=== PATIENT | male | born 1945 | race Caucasian/White ===

== ENCOUNTER 2019-07-01 08:54 | Outpatient (CLI) | payer OTHER ==
[2019-07-01] MEDS ORDERED: Iopamidol 370 76% 100 ML VIAL ONE (12:20)
--- NOTE | 2019-07-01 14:32 | NM ---
NUCLEAR MEDICINE WHOLE BODY SCAN: HISTORY: The patient was diagnosed with renal cell cancer in May 2019. COMPARISON: None. TECHNIQUE: The patient was administered 30.7 mCi of technetium 99m MDP intravenously. After 3 hour delay, static images were submitted for interpretation. FINDINGS: Physiologic distribution of the radiotracer. Uptake in the sinuses likely due to sinus disease. Uptake in both shoulders, knees, left ankle and both MTP joints due to degenerative change. Radiotracer retention in the left and right renal pelvis is noted. There is subtle uptake of radiotracer in the lumbar spine likely on the basis of the unchanged. Pleas e refer to a lumbar spine. Basilar infiltrate chest abdomen pelvis CT performed today for further detail. There is no scintigraphic evidence of osseous metastasis. IMPRESSION: No scintigraphic evidence of osseous metastasis. Transcribed Date/Time: 07/01/2019 3:18 PM
--- NOTE | 2019-07-03 14:17 | CT ---
CT CHEST WITH CONTRAST: CT ABDOMEN WITH CONTRAST: CT PELVIS WITH CONTRAST: HISTORY: Renal cancer with bone metastases. CORRELATION: Lumbar spine MRI from 06/13/2019. COMPARISON: 11/25/2016 12/21/2017 FINDINGS: CHEST Mediastinum: No mass or hematoma. Right paratracheal lymph node measures 1.4 x 1.0 cm. Previously thi s lymph node measured 0.7 x 1.0 cm. Slight interval increase. No hematoma or significant mediastinal fluid. Aorta: Normal caliber. Atherosclerosis. No periaortic fat stranding. Heart: Normal heart size. No significant pericardial fluid. Trachea and central bronchi: Patent. Pleural spaces: No pleural effusion Right lung: Emphysematous changes in the lung apex and posterior aspect of the upper lobe and lower l obe. A 0.4 x 0.3 cm nodule in the lateral aspect of the middle lobe. A 0.3 cm nodule in the superior segment of the right lower lobe. Pleural-based nodule along the posterior aspect of the righ t lower lobe measuring 0.5 x 0.5 cm. All of the aforementioned nodules are essentially unchanged when compared to the previous examination. No new nodules in the right lung. Left lung:Emphysematous changes in the lung apex and posterior aspect of the lower lobe. A 2.7 x 1.8 cm pleural-based nodule along the lingula. Pneumothorax: None. ABDOMEN Gallbladder: Unremarkable. Portal vein: Patent. Liver: Appropriate enhancement. Spleen: Not appreciated. There appears to be a splenule in the left upper quadrant measuring 3.3 x 2. 5 cm. Pancreas: Appropriate enhancement. Adrenal glands: Appropriate enhancement. Lymphadenopathy: No gastrohepatic, retrocrural or periportal lymphadenopathy. Right kidney: There is dilatation of the right renal pelvis with fat stranding secondary to a calculu s measuring 1.1 x 1.1 cm. No significant calyceal dilatation. The remainder the right extrarenal collecting system is decompressed. There are hypodensities in the right renal cortex which may repres ent cysts. There does appear to be a solid mass in the midpole of the right kidney with attenuation coefficient of 67 Hounsfield units, measuring 2.8 x 2.4 cm. Additional solid nodules in the right kid colleen are not appreciated. Left kidney: Multiple hypodensities in the left kidney are noted and may represent simple cysts. Ther e does appear to be a hypodense lesion with peripheral enhancement in the mid pole left kidney which may represent a complex cyst measuring 3.8 x 3.6 cm. Emanating from the upper pole of the left kidney is a predominantly solid attenuation mass measuring 3.4 x 3.5 cm. Mesentery: No mass, lymphadenopathy, free air or free fluid. Alimentary canal: Gastric mucosa, duodenum and multiple normal caliber small bowel loops. Ileocecal j unction is unremarkable. Normal caliber appendix. Scattered fecal material and contrast in a nondistended, nondilated colon. Occasional diverticulum. No diverticulitis. PELVIS No pelvic mass, lymphadenopathy, free air or free fluid. Urinary bladder unremarkable OSSEOUS STRUCTURES There are no lytic or blastic lesions within the osseous structures. There is no CT evidence of osseo us metastases. Multilevel vacuum disc phenomenon with endplate changes due to degenerative change. Sclerosis along the superior aspect of S1 likely due to degenerative disc disease. No evidence of pat hologic fracture. IMPRESSION: 1. Bilateral renal cortical neoplasms. 2. Stranding of the right renal pelvis likely due to an obstructing calculus. 3. Bilateral renal cortical cysts. 4. No evidence of osseous metastases. Multiple endplate changes due to degenerative disc disease are noted. 5. Lung parenchymal nodules as described above.
== END 2019-07-01 08:55 | disposition home or self-care (01) ==
LOC: NM 08:54
PROVIDERS: ATTEND Internal Medicine Hematology & Oncology
DX: C64.1 Malignant neoplasm of right kidney, except renal pelvis (principal); C79.51 Secondary malignant neoplasm of bone; N28.1 Cyst of kidney, acquired
CPT/HCPCS: 71260; 74177; 78306; 82565; A9503; Q9967

== ENCOUNTER 2019-08-08 08:28 | Day surgery (SDC) | payer OTHER ==
[2019-08-07 12:41] VITALS: BMI 31.5
[2019-08-08 08:54] LABS: PTT 29.4 SEC (22.9-36.1); Prothrombin Time 12.7 SEC (12.0-14.7)
[2019-08-08 09:00] LABS: #Basophils 0.1 thou/uL (0.0-0.2); #Eosinphils 0.3 thou/uL (0.0-0.7); #Monocytes 0.9 thou/uL (0.11-0.59); #Neutrophils 5.5 thou/uL (1.40-6.50); %Basophils 1.2 % (0.0-1.0); %Eosinophils 2.8 % (0.0-10.0); %Lymphocytes 30.4 % (21.0-51.0); %Monocytes 9.2 % (0.0-10.0); %Neutrophils 56.4 % (42.0-75.0); Hemoglobin 14.8 g/dL (14.0-18.0); Mean Corpuscular Hemoglobin 30.4 pg (27.0-31.0); Mean Corpuscular Volume 91.9 fL (78.0-98.0); Mean Platelet Volume 7.4 fL (7.4-10.4); Platelet Count 345 thou/uL (130-400); RBC Distribution Width 12.8 % (11.5-14.5); Red Blood Cell (RBC) Count 4.88 mill/uL (4.70-6.10); White Blood Cell (WBC) Count 9.8 thou/uL (4.8-10.8)
[2019-08-08 11:55] VITALS: BP 159/97; TEMP 98.5
--- NOTE | 2019-08-08 13:29 | CT ---
CT-guided biopsy right renal Mass. Conscious sedation: At least 1 hour was spent with the patient for conscious sedation. HISTORY: Right renal mass. FINDINGS: After explaining the procedure and answering all questions, limited CT imaging of the abdom en was performed. Sterile technique, buffered local anesthesia, conscious sedation, CT guidance, and a right posterior approach were used to carefully advance a 17-gauge trocar needle to the level o f the mass at the lateral cortex of the right kidney. Position was confirmed with CT. A total of 2 18-gauge core biopsy specimens were obtained and submitted to Dr. Honeycutt from pathology who confirmed specimen adequacy. Blood did come from the trocar needle after the initial biopsy. Therefore 2 small pledgets of thrombogel were carefully instilled through the trocar needle into the biopsy site for hemostasis. Needle was removed. Postprocedure imaging shows no evidence of complication. Patient tolerated the procedure well and was eventually returned to the holding area in good condition for further monitoring. IMPRESSION: Technically successful CT-guided biopsy right renal mass. Pathology is pending.
--- NOTE | 2019-08-08 13:33 | CT ---
CT-guided biopsy left renal mass FINDINGS: After explaining the procedure and answering all questions, CT biopsy right renal mass was performed and reported separately. With patient in left lateral decubitus position, limited imaging was performed. Sterile technique, bu ffered local anesthesia, CT guidance, conscious sedation, and a left posterior approach were used to carefully advance a 17-gauge trocar needle to the exophytic hyperdense mass at the superior pole o f the left kidney. Position was confirmed with CT. A total of 2 18-gauge core biopsy specimens were obtained and submitted to Dr. Honeycutt from pathology who confirmed specimen adequacy. Needle was removed. No evidence of complication. Patient tolerated the procedure well and was returned to the holding area in good condition for further monit oring. IMPRESSION: Technically successful CT-guided biopsy left renal mass. Pathology is pending.
== END 2019-08-08 13:05 | disposition home or self-care (01) ==
LOC: CT 08:28
PROVIDERS: ATTEND Urology
PROC: 0TB03ZX Excision of Right Kidney, Percutaneous Approach, Diagnostic (ICD-10-PCS; principal; 2019-08-08)
PROC: 0TB13ZX Excision of Left Kidney, Percutaneous Approach, Diagnostic (ICD-10-PCS; principal; 2019-08-08)
DX: D41.01 Neoplasm of uncertain behavior of right kidney (principal); D41.02 Neoplasm of uncertain behavior of left kidney
CPT/HCPCS: 50200; 77002; 85025; 85610; 85730; 88184; 88305; 88333

== ENCOUNTER 2019-08-13 13:36 | Outpatient (CLI) | payer OTHER ==
--- NOTE | 2019-08-13 14:36 | PET ---
PET CT: HISTORY: Malignant neoplasm of right kidney, extrarenal pelvis, renal cancer with bone mets, and lung parenchy mal nodules. TECHNIQUE: PET scanning with CT attenuation correction was performed from the base of the brain through the prox imal thighs following the intravenous administration of 11 mCi F18-FDG in the right antecubital fossa . COMPARISON: None. CORRELATION: CT chest, abdomen, and pelvis, and whole body bone scan of 07/01/19. FINDINGS: There is a mildly hypermetabolic right paratracheal lymph node in the mediastinum with a SUV of 2.9. No hypermetabolic cervical, hilar, axillary, abdominal, or pelvic lymph nodes are seen. No hypermetab olic pulmonary nodules or adrenal nodules are identified. There is a focal area of increased FDG localization in the left liver lobe with a SUV of 5.3. Multiple hypermetabolic osseous lesions are present with varying SUVs: including C2 (7.2), left scapu la (5.3), T11 (3.2), L3 (4.2), S1 (7.2), right iliac bone (5.3), left iliac bone (5), right pubic bon e (4.8), left ischial tuberosity (4.8), right proximal femur (3.5), and left proximal femur (10.3). The CT scan used for attenuation correction demonstrates no evidence of pleural effusions or ascites. There are calculi in the right renal pelvis and the right UPJ. The UPJ calculus is obstructing. Bila teral renal masses are again seen. IMPRESSION: 1. Findings are consistent with osseous metastatic disease. 2. Findings in the left liver lobe and right paratracheal lymph node are also suspicious for metasta tic disease. POS: VERONICA
== END 2019-08-13 13:37 | disposition home or self-care (01) ==
LOC: PET 13:36
PROVIDERS: ATTEND Internal Medicine Hematology & Oncology
DX: C79.51 Secondary malignant neoplasm of bone (principal); C64.1 Malignant neoplasm of right kidney, except renal pelvis; R91.8 Other nonspecific abnormal finding of lung field
CPT/HCPCS: 78815; A9552

== ENCOUNTER 2019-09-02 09:04 | Day surgery (SDC) | payer OTHER ==
[2019-08-30 13:04] VITALS: BMI 30.8
[~2019-09-02 09:04] MED LIST: FLU VACC TS2019-20(65YR UP)/PF 180 MCG/0.5 ML SYRINGE IM ONE
[2019-09-02] MEDS ORDERED: Midazolam HCl 2 mg/2 ml Vial ONE (10:39)
--- NOTE | 2019-09-02 11:48 | CT ---
CT GUIDED RIGHT ILIAC BONE MARROW ASPIRATION AND BIOPSY: CLINICAL HISTORY: Follicular lymphoma. PROCEDURE: The procedure including the risks and complications were explained to the patient, and informed conse nt was obtained. The patient was placed on the CT scan table in the prone position. Noncontrasted CT images were obtained through the pelvis. An area was marked overlying the RIGHT estefanía c bone, and the area was meticulously prepped and draped in usual sterile fashion. The skin and subcutaneous tissues were infiltrated with buffered 1% lidocaine for local anesthesia. After a small skin incision was made, an 11-gauge needle was advanced and positioning was confirmed w ith axial CT images. Approximately 9 milliliters of bone marrow aspirate was obtained. The needle was then further advanced, and a bone biopsy was performed. The needle was removed, and hemostasis wa s achieved with direct pressure. The patient tolerated the procedure well and without immediate complication. The patient was transported to radiology nurses holding area for further monitoring quintin or to discharge. IMPRESSION: Technically successful percutaneous bone marrow aspiration and biopsy. Pathology results are pending.
== END 2019-09-02 13:20 | disposition home or self-care (01) ==
LOC: CT 09:04
PROVIDERS: ATTEND Internal Medicine Hematology & Oncology
PROC: BR2D1ZZ Computerized Tomography (CT Scan) of Sacroiliac Joints using Low Osmolar Contrast (ICD-10-PCS; principal; 2019-09-02)
PROC: 079T3ZX Drainage of Bone Marrow, Percutaneous Approach, Diagnostic (ICD-10-PCS; principal; 2019-09-02)
PROC: 07DR3ZX Extraction of Iliac Bone Marrow, Percutaneous Approach, Diagnostic (ICD-10-PCS; principal; 2019-09-02)
DX: C82.93 Follicular lymphoma, unspecified, intra-abdominal lymph nodes (principal); Z79.82 Long term (current) use of aspirin; Z79.899 Other long term (current) drug therapy
CPT/HCPCS: 20225; 77002; 85097; 88184; 88237; 88305; 88311; 88313; 88341; 88342; J2250

== ENCOUNTER 2020-01-07 11:30 | Emergency (ER) | payer OTHER ==
[2020-01-07 12:16] LABS: #Basophils 0.1 thou/uL (0.0-0.2); #Eosinphils 0.3 thou/uL (0.0-0.7); #Lymphocytes 2.3 thou/uL (1.20-3.40); #Monocytes 0.8 thou/uL (0.11-0.59); #Neutrophils 4.1 thou/uL (1.40-6.50); %Basophils 1.3 % (0.0-1.0); %Eosinophils 3.5 % (0.0-10.0); %Lymphocytes 30.3 % (21.0-51.0); %Neutrophils 53.9 % (42.0-75.0); Hemoglobin 14.8 g/dL (14.0-18.0); Mean Corpuscular HGB CONC 31.8 g/dL (32.0-36.0); Mean Corpuscular Hemoglobin 29.8 pg (27.0-31.0); Mean Corpuscular Volume 93.5 fL (78.0-98.0); Mean Platelet Volume 7.7 fL (7.4-10.4); Platelet Count 340 thou/uL (130-400); RBC Distribution Width 12.7 % (11.5-14.5); Red Blood Cell (RBC) Count 4.97 mill/uL (4.70-6.10); White Blood Cell (WBC) Count 7.7 thou/uL (4.8-10.8)
--- NOTE | 2020-01-07 12:24 | RAD ---
Exam: Chest one view HISTORY:Increased shortness of breath. Lower extremity swelling. Renal neoplasm. Comparison: None FINDINGS: Cardiac silhouette: Normal Aorta: Atherosclerosis Pulmonary vessels: Normal Costophrenic angles: Clear LUNGS: No masses or consolidation. Scattered calcified granuloma Pneumothorax: None Osseous abnormalities: None IMPRESSION: 1. Atherosclerosis 2. No acute cardiac pulmonary process
[2020-01-07 12:38] LABS: ALT (SGPT) 10 U/L (8-55); AST (SGOT) 17 U/L (5-34); Albumin 4.2 g/dL (3.4-4.8); Alkaline Phosphatase 158 U/L (40-110); Anion Gap 13 mmol/L (10-20); BUN (Urea Nitrogen) 26 mg/dL (8.4-25.7); Bilirubin, Total 0.6 mg/dL (0.2-1.2); CK (CPK) 68 U/L (30-200); Calc. Creatinine Clearance 0 mL/min (70-130); Calcium 9.8 mg/dL (7.8-10.44); Carbon Dioxide 27 mmol/L (23-31); Chloride 103 mmol/L (98-107); Estimated GFR-MDRD 30; Globulin 3.5 g/dL (2.4-3.5); Glucose 96 mg/dL (83-110); Potassium 3.8 mmol/L (3.5-5.1); Protein, Total 7.7 g/dL (5.8-8.1); Sodium 139 mmol/L (136-145)
--- NOTE | 2020-01-16 16:40 | EKG ---
Test Reason : SOB Blood Pressure : / mmHG Vent. Rate : 059 BPM Atrial Rate : 059 BPM P-R Int : 162 ms QRS Dur : 082 ms QT Int : 436 ms P-R-T Axes : 028 -03 029 degrees QTc Int : 431 ms Sinus bradycardia Otherwise normal ECG Confirmed by DENISE REN DO ([id number]), editor news TIFFANI RUTH ([id number]) on 01/16/2020 4:39:48 PM Referred By: GELA Confirmed By:DENISE REN DO
== END 2020-01-07 13:45 | disposition home or self-care (01) ==
LOC: ERS 11:30
DX: I12.9 Hypertensive chronic kidney disease with stage 1 through stage 4 chronic kidney disease, or unspecified chronic kidney disease (principal); N18.9 Chronic kidney disease, unspecified; E78.5 Hyperlipidemia, unspecified; E78.00 Pure hypercholesterolemia, unspecified; I10 Essential (primary) hypertension; F41.9 Anxiety disorder, unspecified; F32.9 Major depressive disorder, single episode, unspecified; Z79.899 Other long term (current) drug therapy; Z86.718 Personal history of other venous thrombosis and embolism
CPT/HCPCS: 71045; 80053; 82550; 83880; 84484; 85025; 93005; 94760

== ENCOUNTER 2020-02-04 07:52 | Outpatient (CLI) | payer OTHER ==
--- NOTE | 2020-02-04 13:10 | PET ---
Radionucleotide PET scan with CT attenuation correction HISTORY: Lymphoma. Renal cell cancer. Bone metastases. Restaging. Comparison: 08/13/2019. FINDINGS: Physiologic uptake of radiotracer throughout the enteric system and along each urinary trac t. Uptake associated with the 1.5 cm precarinal mediastinal lymph node shows max SUV 4.9 (previously 2.9 ). Hypermetabolic focus within the left liver lobe now shows max SUV 5.5 (previously 5.3). Widespread areas of hypermetabolic activity associated with osseous metastases are again demonstrated : Right humerus max SUV 3.4 (previously 3.3) Left scapula max SUV 5.2 (5.5) Right scapula 1.6 (3.3) Manubrium 3.1 (2.8) L3 superior endplate 5.8 (4.3) Right iliac bone 7.6 (5.2) Left iliac bone 4.9 (3.4) Upper sacrum 4.6 (7.2) Left femur 13.8 (10.3) Right femur 4.9 (6.0) Nondiagnostic CT attenuation correction images again show prominent atherosclerosis. Prominent right hydronephrosis is again demonstrated with obstructing proximal right ureteral calcifications and additional nonobstructing renal calculus. IMPRESSION : Remarkably stable exam. Very little change in uptake associated with widespread osseous metastatic di sease, mediastinal lymph node, and liver lesion. No new abnormalities.
== END 2020-02-04 07:53 | disposition home or self-care (01) ==
LOC: PET 07:52
PROVIDERS: ATTEND Internal Medicine Hematology & Oncology
DX: C85.90 Non-Hodgkin lymphoma, unspecified, unspecified site (principal); C64.9 Malignant neoplasm of unspecified kidney, except renal pelvis; C79.51 Secondary malignant neoplasm of bone; K76.9 Liver disease, unspecified
CPT/HCPCS: 78815; A9552

== ENCOUNTER 2020-02-14 06:39 | Outpatient (CLI) | payer OTHER ==
[2020-02-14 11:06] LABS: Hemoglobin 15.7 g/dL (14.0-18.0); Mean Corpuscular HGB CONC 33.5 g/dL (32.0-36.0); Mean Corpuscular Hemoglobin 30.8 pg (27.0-31.0); Mean Corpuscular Volume 92.1 fL (78.0-98.0); Mean Platelet Volume 7.9 fL (7.4-10.4); Platelet Count 365 thou/uL (130-400); RBC Distribution Width 12.8 % (11.5-14.5); Red Blood Cell (RBC) Count 5.08 mill/uL (4.70-6.10); White Blood Cell (WBC) Count 9.7 thou/uL (4.8-10.8)
[2020-02-14 12:02] LABS: Anion Gap 17 mmol/L (10-20); BUN (Urea Nitrogen) 21 mg/dL (8.4-25.7); Calc. Creatinine Clearance 0 mL/min (70-130); Calcium 9.5 mg/dL (7.8-10.44); Carbon Dioxide 23 mmol/L (23-31); Chloride 104 mmol/L (98-107); Estimated GFR-MDRD 32; Glucose 105 mg/dL (83-110); Sodium 140 mmol/L (136-145)
[2020-02-15 12:17] LABS: SARS-CoV-2 MS2 Positive; SARS-CoV-2 N Gene Negative; SARS-CoV-2 S Gene Negative; SARS-CoV-2 orf1ab Negative
[2020-02-20 11:56] LABS: SARS-CoV-2 MS2 Positive; SARS-CoV-2 N Gene Negative; SARS-CoV-2 S Gene Negative; SARS-CoV-2 orf1ab Negative
== END 2020-02-14 06:40 | disposition home or self-care (01) ==
LOC: LABBT 06:39
PROVIDERS: ATTEND Urology
DX: Z01.812 Encounter for preprocedural laboratory examination (principal); Z11.59 Encounter for screening for other viral diseases; N20.0 Calculus of kidney
CPT/HCPCS: 80048; 85027; 87635; U0003

== ENCOUNTER 2020-02-23 13:50 | Inpatient (IN) | payer OTHER ==
[~2020-02-23 13:50] MED LIST changes: +Dexamethasone 20 MG/5 ML VIAL ONE; -FLU VACC TS2019-20(65YR UP)/PF 180 MCG/0.5 ML SYRINGE IM ONE; +Lidocaine 1% PF 5 ML VIAL ONE; +Ondansetron PF 4 MG/2 ML Vial ONE; +PROPOFOL 200 MG/20 ML VIAL ONE; +Rocuronium Bromide 10 MG/ML (10ML VIAL) ONE; +Succinylcholine Chloride 20 MG/ML 10 ml SYRINGE FS ONE
[2020-02-23] MEDS ORDERED: Fentanyl 100 MCG/2 ML VIAL ONE ×4 (14:04→19:40)
[2020-02-23] MEDS ORDERED: Adacel (T-DAP) 0.5 ML SYRINGE ONE (14:27)
[2020-02-23] MEDS ORDERED: Ondansetron PF 4 MG/2 ML Vial ONE (14:27)
--- NOTE | 2020-02-23 14:43 | RAD ---
EXAM: 2 views of the right hip HISTORY: Right hip pain COMPARISON: None FINDINGS: 2 views of the right hip shows an intertrochanteric fracture of the right femur. No disloca tion is seen. No degenerative changes are seen. No soft tissue swelling is present. IMPRESSION: Intertrochanteric right femur fracture
--- NOTE | 2020-02-23 14:45 | RAD ---
EXAM: 4 views of the right knee HISTORY: Knee pain COMPARISON: None FINDINGS: No knee effusion is seen. There is no evidence of acute fracture or dislocation. No signifi cant degenerative changes are seen. No soft tissue swelling is present. Vascular calcifications are seen. IMPRESSION: No evidence of acute osseous abnormality.
--- NOTE | 2020-02-23 14:46 | RAD ---
EXAM: 2 views of the right femur HISTORY: Leg pain after fall COMPARISON: None FINDINGS: There is an intertrochanteric right femur fracture. No other fractures are seen. No disloca tion is present. No soft tissue swelling is seen. No degenerative changes are seen in the hip. IMPRESSION: Intertrochanteric right femur fracture
--- NOTE | 2020-02-23 15:09 | CT ---
EXAM: CT brain without contrast HISTORY: Fall with head trauma COMPARISON: None TECHNIQUE: Multiple contiguous axial images were obtained and a CT of the brain without contrast. FINDINGS: There are scattered hypodensities in the subcortical and periventricular white matter consi stent with small vessel ischemic disease. There is no evidence of hydrocephalus, intracranial hemorrhage, or extra-axial fluid collection. The calvarium and overlying soft tissues are unremarkable. The visualized paranasal sinuses and masto id air cells are well aerated. IMPRESSION: No evidence of acute intracranial abnormality
--- NOTE | 2020-02-23 15:20 | RAD ---
EXAM: Single view of the chest HISTORY: Preoperative radiograph COMPARISON: 01/07/2020 FINDINGS: Single view of the chest shows a normal sized cardiomediastinal silhouette. A calcified gr anuloma seen in the right midlung. There is no evidence of consolidation or pleural effusion. The bones are unremarkable. IMPRESSION: No evidence of acute cardiopulmonary disease
[2020-02-23 15:48] LABS: #Eosinphils 0.1 thou/uL (0.0-0.7); #Lymphocytes 2.7 thou/uL (1.20-3.40); #Monocytes 1.3 thou/uL (0.11-0.59); #Neutrophils 10.8 thou/uL (1.40-6.50); %Basophils 0.1 % (0.0-1.0); %Eosinophils 0.4 % (0.0-10.0); %Monocytes 8.5 % (0.0-10.0); %Neutrophils 72.9 % (42.0-75.0); Hemoglobin 13.1 g/dL (14.0-18.0); Mean Corpuscular HGB CONC 33.8 g/dL (32.0-36.0); Mean Corpuscular Hemoglobin 30.9 pg (27.0-31.0); Mean Corpuscular Volume 91.4 fL (78.0-98.0); Mean Platelet Volume 7.9 fL (7.4-10.4); Platelet Count 324 thou/uL (130-400); RBC Distribution Width 12.9 % (11.5-14.5); Red Blood Cell (RBC) Count 4.26 mill/uL (4.70-6.10); White Blood Cell (WBC) Count 14.8 thou/uL (4.8-10.8)
[2020-02-23 15:49] LABS: PTT 29.3 sec (22.9-36.1); Prothrombin Time 12.9 sec (12.0-14.7)
[2020-02-23 16:04] LABS: ALT (SGPT) 9 U/L (8-55); AST (SGOT) 14 U/L (5-34); Albumin 3.7 g/dL (3.4-4.8); Alkaline Phosphatase 154 U/L (40-110); Anion Gap 15 mmol/L (10-20); BUN (Urea Nitrogen) 22 mg/dL (8.4-25.7); Bilirubin, Total 0.3 mg/dL (0.2-1.2); Calc. Creatinine Clearance 0 mL/min (70-130); Calcium 8.8 mg/dL (7.8-10.44); Carbon Dioxide 21 mmol/L (23-31); Chloride 107 mmol/L (98-107); Estimated GFR-MDRD 28; Glucose 101 mg/dL (83-110); Potassium 3.5 mmol/L (3.5-5.1); Protein, Total 6.7 g/dL (5.8-8.1); Sodium 139 mmol/L (136-145)
--- NOTE | 2020-02-23 17:10 | HP ---
REQUESTING PHYSICIAN: Dr. Guerin. ATTENDING SURGEON: Dr. Cartagena. CONSULTATIONS: Orthopedics, Dr. Perdomo. HISTORY OF PRESENT ILLNESS: The patient is a 74-year-old man who was leaning over to pick something up when he fell forward and hit his head. He reports no loss of consciousness. He was able to contact family members fairly quickly, who notified EMS. He was brought to the emergency department with a chief complaint of right knee and hip pain. He underwent evaluation and examination, was noted to have a right intertrochanteric femur fracture; at which time, we were asked to evaluate the patient for admission and obtain Orthopedic consultation. The patient was examined in the emergency department by Dr. Perdomo and due to his n.p.o. status, plans on taking him to the operating room today. The patient has been n.p.o. since this morning. He denies blood thinner use, though he does take a baby aspirin daily. ALLERGIES: NONE. CURRENT MEDICATIONS: The patient reports takin. Antidepressant, he believes, is Zoloft. 2. "A blood pressure medicine.". 3. A baby aspirin every day. PAST MEDICAL HISTORY: Lymphoma, renal cell carcinoma with bony metastasis, obstructing nephrolithiasis on the right, and hypertension. PAST SURGICAL HISTORY: On 02/21/2020, the patient underwent right uroscopy with a laser of ureteral stone and retrograde urography. Family reports splenectomy and hand surgery. SOCIAL HISTORY: The patient denies drug, tobacco, or alcohol use. He lives independently at home alone with family nearby. The patient's urologist is Dr. Kendall and his oncologist is Dr. Garcia. REVIEW OF SYSTEMS: 10-point review of systems is negative as otherwise stated. PHYSICAL EXAMINATION: VITAL SIGNS: Blood pressure 135/88, heart rate 88, respirations 16, oxygen saturation is 95% on 2 L via nasal cannula, and temperature is 98.4. GENERAL: The patient is resting in bed. He appears to be having some discomfort and the nurses about to administer some more pain medications. Otherwise, he is awake and responsive and interactive appropriately. The son is at bedside and answers the majority of the questions. He does state that his dad is at baseline. HEENT: Head is normocephalic with small forehead contusion noted. Eyes, extraocular motions intact. PERRLA bilaterally. Ears are atraumatic without discharge. Nose, atraumatic without discharge. Oropharynx is clear. NECK: Nontender. Trachea is midline. No JVD. CHEST: Clear to auscultation with good inspiratory and expiratory effort. HEART: Regular rate and rhythm. ABDOMEN: Soft, flat, nontender with active bowel sounds. PELVIS: Stable with tenderness to palpation to the right hip consistent with his fracture. EXTREMITIES: Neurovascularly intact x4. Distal extremity shows 2+ pitting edema bilaterally. BACK: By report is atraumatic and nontender. LABORATORY FINDINGS: White blood cell count 14.8, hemoglobin 13.1, hematocrit 38.9, and platelets 324. Sodium 139, potassium 3.5, chloride 107, CO2 of 21, BUN 22, creatinine 2.32, glucose 101, INR 1.0, PTT 29. RADIOGRAPHIC REPORTS: CT of the brain without contrast shows no evidence of acute intracranial abnormality. AP chest x-ray shows no evidence of acute cardiopulmonary disease. Views of the right hip show a right intertrochanteric femur fracture. Views of the right femur again demonstrate the right intertrochanteric femur fracture. Views of the right knee show no evidence of acute osseous abnormality. ASSESSMENT: 1. Status post ground level fall. 2. Right intertrochanteric femur fracture. 3. Acute pain secondary to above. 4. History of chronic kidney disease secondary to obstructing renal stone. 5. History of lymphoma with bony metastasis. 6. History of hypertension and depression. PLAN: Plan will be to continue the patient n.p.o. status. He will be taken to the preop staging area from the emergency department postoperatively. We will do pain control, pulmonary toilet, gastritis, mechanical VTE prophylaxis. Tomorrow, we will begin physical and occupational therapy. We will discuss placement, and we will also advise Dr. Kendall that the patient is here and ascertain whether he would like the patient to undergo his nephrostomy tube placement during this hospitalization. The evaluation, examination, laboratory, and radiographic findings were discussed with Dr. Cartagena after this dictation. Job ID: [id number]
[2020-02-23] MEDS ORDERED: Morphine Sulfate 2 MG/ML SYRINGE SLOW IVP PRN (18:13)
[2020-02-23] MEDS ORDERED: Promethazine HCl 25 MG/ML VIAL IM PRN (18:13)
[2020-02-23] MEDS ORDERED: PACU-Morphine 4MG/ML VIAL SLOW IVP PRN (18:13)
[2020-02-23] MEDS ORDERED: Ondansetron HCl/PF 4 MG/2 ML Vial IVP PRN (18:13)
[2020-02-23] MEDS ORDERED: Promethazine HCl 25 MG/ML VIAL SLOW IVP PRN (18:13)
[2020-02-23] MEDS ORDERED: SUGAMMADEX SODIUM 200 MG/2 ML VIAL ONE (18:42)
[2020-02-23] MEDS ORDERED: Dextrose 5% in Water 1,000 ML IV PRN (19:01)
[2020-02-23] MEDS ORDERED: Ondansetron PF 4 MG/2 ML Vial IVP PRN (19:01)
[2020-02-23] MEDS ORDERED: Dextrose 50% Abboject 50 ML SYRINGE SLOW IVP PRN (19:01)
[2020-02-23] MEDS ORDERED: Ondansetron ODT 4 MG TAB PO PRN (19:01)
[2020-02-23] MEDS ORDERED: hydrALAZINE 20 MG/ML VIAL SLOW IVP PRN (19:01)
[2020-02-23] MEDS ORDERED: Morphine 2 MG/ML SYRINGE SLOW IVP PRN (19:01)
[2020-02-23] MEDS ORDERED: Morphine 4 MG/ML VIAL SLOW IVP PRN (19:01)
[2020-02-23] MEDS: Sodium Chloride 0.9% 1,000 ML IV SCH (20:00)
[2020-02-23 22:58] VITALS: BMI 30.4
[2020-02-24] MEDS: Sodium Chloride 0.9% 1,000 ML IV SCH (00:55)
[2020-02-24] MEDS: CEFAZOLIN 2 GM in Premix Bag 1 BAG IVPB SCH ×2 (00:56→08:50)
[2020-02-24 05:16] LABS: #Lymphocytes 1.1 thou/uL (1.20-3.40); #Monocytes 0.5 thou/uL (0.11-0.59); #Neutrophils 8.1 thou/uL (1.40-6.50); %Basophils 0.2 % (0.0-1.0); %Eosinophils 0.1 % (0.0-10.0); %Lymphocytes 11.4 % (21.0-51.0); %Neutrophils 83.3 % (42.0-75.0); Hemoglobin 11.4 g/dL (14.0-18.0); Mean Corpuscular HGB CONC 32.6 g/dL (32.0-36.0); Mean Corpuscular Hemoglobin 29.8 pg (27.0-31.0); Mean Corpuscular Volume 91.2 fL (78.0-98.0); Mean Platelet Volume 7.7 fL (7.4-10.4); Platelet Count 278 thou/uL (130-400); RBC Distribution Width 12.9 % (11.5-14.5); Red Blood Cell (RBC) Count 3.83 mill/uL (4.70-6.10); White Blood Cell (WBC) Count 9.7 thou/uL (4.8-10.8)
[2020-02-24 05:36] LABS: Anion Gap 12 mmol/L (10-20); BUN (Urea Nitrogen) 20 mg/dL (8.4-25.7); Calc. Creatinine Clearance 42 mL/min (70-130); Calcium 8.1 mg/dL (7.8-10.44); Carbon Dioxide 23 mmol/L (23-31); Chloride 109 mmol/L (98-107); Estimated GFR-MDRD 31; Glucose 137 mg/dL (83-110); Magnesium 2.1 mg/dL (1.6-2.6); Potassium 3.8 mmol/L (3.5-5.1); Sodium 140 mmol/L (136-145)
--- NOTE | 2020-02-24 06:43 | CON ---
DATE OF CONSULTATION: 02/23/2020 CHIEF COMPLAINT: Right hip pain, right knee pain. HISTORY OF PRESENT ILLNESS: Mr. Navarrete is a 74-year-old male who presents after a ground-level fall. The patient recently underwent a right ureteroscopy with laser of ureteral stone. The patient underwent this procedure on 02/21/[address] Kendall. The patient has stage IV follicular lymphoma, that is followed by Dr. Garcia. The patient was at home, was walking, tripped and fell and injured his right hip. The patient complains of pain with mobilization, and was brought in by EMS. The patient is currently being evaluated by Trauma. He is resting in bed. His pain was at 10/10 upon arrival. PAST MEDICAL HISTORY: Includes: 1. Hypertension. 2. Hyperlipidemia. 3. Anxiety. 4. Depression. 5. Stroke. 6. Reflux. 7. Hemorrhoids. 8. Hearing loss. 9. Peripheral vascular disease. 10. Stage IV follicular lymphoma. 11. Renal stones with obstruction. PAST SURGICAL HISTORY: 1. Splenectomy. 2. Hand surgery, unspecified. 3. Right ureteroscopy with laser procedures and repeat laser procedure performed on the . ALLERGIES: NO KNOWN DRUG ALLERGIES. MEDICATION LIST: 1. Amlodipine. 2. Atorvastatin. 3. Aspirin. 4. Cyclobenzaprine. 5. Omeprazole. 6. Oxybutynin. 7. Paroxetine. 8. Tamsulosin. 9. Tramadol. SOCIAL HISTORY: The patient has a history of smoking, had alcohol use 20 years ago, which he has quit. 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 The patient's son is at bedside. REVIEW OF SYSTEMS: Notes some general fatigue and pain. The patient had no cough. No productive sputum. The patient denies chest pain or shortness of breath. He denies hematemesis or melena. The patient does have some hematuria and recent sorto, laceration, and skin changes. No migraines. Denies visual or auditory hallucinations. The patient has no history excessive bleeding. PHYSICAL EXAMINATION: VITAL SIGNS: Blood pressure 141/67, heart rate 85, respirations 20, temperature 98.5, and saturation 95% on 2 L oxygen. GENERAL: Alert male, in no acute distress, resting in bed. EXTREMITIES: Right lower extremity has shortened, externally rotated right leg. He has brisk cap refill. Some edema to his right lower extremity. No abrasions on his right leg. He has stable knee, pain with internal rotation. He is able to plantar flexion, dorsiflex his right foot. LABORATORY VALUES: INR of 1. Hemoglobin and hematocrit of 13 and 38 and platelet count of 324. The patient has a pending creatinine. The patient has femur, knee, and hip films, showing a right intertrochanteric hip fracture. No obvious lesions. Review of PET scan show multiple mets of the lymphoma, there was no obvious bony destruction. IMPRESSION: 1. Right intertrochanteric hip fracture. 2. Stage IV follicular lymphoma. 3. Hypertension. 4. Recent kidney stone with possible obstruction. 5. Anxiety. 6. Stroke. 7. Reflux. ASSESSMENT AND PLAN: The patient will be admitted to Trauma Surgery. The patient will be taken to the OR for a long TFNA. I discussed the patient's care with Dr. Weiss who feels that this not likely a pathologic fracture. I can treat this as a typical intertrochanteric femur fracture. Given the lesions, I would just stabilize the bone with a long nail. I discussed the risks and benefits of the surgery to include pain, scar, bleeding, infection, damage to vital structures, decreased range of motion and strength, fracture above or below the implants, nonunion, malunion, need for further surgeries, loss of life or limb. I discussed risk of blood clots. I discussed the mortality associated with this fracture to be about 40%. I discussed with the patient this will take about 3 months to recover and he will lose a level of ambulatory function. I discussed all this with the family. They understand and agree. They elect to proceed with a right long TFNA nail. Job ID: [id number] [facility]
--- NOTE | 2020-02-24 07:50 | PRG ---
DATE OF SERVICE: 02/24/2020 SUBJECTIVE: Mr. Navarrete is a 74-year-old male, status post right intertrochanteric hip fracture. The patient is currently resting in bed comfortably, thirsty, desires to drink. OBJECTIVE: VITAL SIGNS: Temperature 98.5, pulse 80, respiratory rate 18, blood pressure 130/80. GENERAL: Alert and oriented, in no acute distress. EXTREMITIES: Right lower extremity neurovascularly intact. Dressing is clean, dry, and intact. LABORATORY DATA: Creatinine of 2.11. The patient is stable. IMPRESSION: Right intertrochanteric hip fracture. ASSESSMENT AND PLAN: The patient will have trauma consult, Dr. Kendall given his recent issues with his stones. Weightbearing as tolerated. Follow inhouse and likely need long term placement. Job ID: [id number]
[2020-02-24] MEDS ORDERED: Prevnar 13-Val Conj/PF 0.5 ML SYRINGE IM ONE (09:00)
--- NOTE | 2020-02-24 09:56 | RAD ---
TWO VIEWS RIGHT FEMUR: DATE: 02/23/2020. PROVIDED CLINICAL HISTORY: ORIF. FINDINGS: Comparison is made with the examination performed earlier same date. Spot fluorosocpic frontal and l ateral views of the right femur demonstrate antegrade intramedullary femoral nail placement with prox imal and distal interlocking screws transfixing previously right proximal femoral fracture. IMPRESSION: As above. POS: AMOS
[2020-02-24] MEDS ORDERED: Sodium Bicarbonate 2.5 MEQ/5 ML VIAL ONE (12:00)
[2020-02-24] MEDS ORDERED: Midazolam HCl 2 mg/2 ml Vial ONE (12:00)
[2020-02-24] MEDS ORDERED: Fentanyl 100 MCG/2 ML VIAL ONE (12:01)
[2020-02-24] MEDS ORDERED: traMADol HCl 50 MG TAB PO PRN ×2 (12:10)
[2020-02-24] MEDS ORDERED: Cyclobenzaprine 10 MG TAB PO PRN (12:10)
--- NOTE | 2020-02-24 13:00 | OP ---
DATE OF PROCEDURE: 02/23/2020 PREOPERATIVE DIAGNOSIS: Right intertrochanteric hip fracture. POSTOPERATIVE DIAGNOSIS: Right intertrochanteric hip fracture. PROCEDURE PERFORMED: Intramedullary nailing of right intertrochanteric hip fracture. LAW ENFORCEMENT OFFICER: None. ANESTHESIOLOGIST: Paco Jay MD ANESTHESIA: The patient received general endotracheal intubation. ESTIMATED BLOOD LOSS: 150 mL. TOURNIQUET TIME: None. ANTIBIOTICS: Ancef 2 g. IMPLANTS: Synthes 11 x 420 mm right TFNA nail with a 105 mm fenestrated screw and a 5 x 44 mm distal locking screw. COMPLICATIONS: None. HISTORY PRESENT ILLNESS: Mr. Navarrete is a 74-year-old male, status post ground level fall. The patient has a history of stage IV lymphoma. Most recently underwent stenting by Dr. Kendall. The patient on Monday had a ground-level fall, sustaining right hip injury. I called and discussed the patient's care with Dr. Weiss. He is currently under Dr. Garcia's care. The patient has right hip pain with obvious deformity consistent with right intertrochanteric hip fracture. I discussed the risks and benefits of surgery, pain, scar, bleeding, infection, damage to vital structures, decreased range of motion and strength, failure of implant, fracture above or below the stem, loss of life or limb. I discussed I would do a long nail just because he has some lymphoma lesions, although they are not lytic. I just wanted to protect the femur. They understood the risks and benefits of the procedure and elected to proceed. DESCRIPTION OF PROCEDURE: Time-out was performed designating the patient's right lower extremity as the operative site based on site, consents, and marking. After time-out, the patient's right lower extremity was prepped and draped in sterile fashion. He had been placed on fracture table. Bony prominences were well- padded. He had a Verma placed, which will stay in until Dr. Kendall decides what he wants to do in the morning. The patient's right incision was made down through skin. IT band split, came down onto the greater trochanter, placed a guide pin under fluoroscopic guidance. I positioned it a little bit more anteriorly and medialized using my pin adjustment guide. Being happy with the position, we used our opening reamer, passed a guidewire, measured a 420 nail, reamed up to 12, passed the 11 x 420 mm nail down the shaft. I liked the center-center position and the position within the neck. Upon completion of passing the nail, we then looked under fluoroscopic guidance, placed our center pin. After two passes in the center- center position of the head, being happy with the position, we over-reamed for 110 and placed the 105 mm screw, compressed it in place. I then took down the gate, took off one half turn. I liked the overall reduction on AP and lateral radiographs and distally placed the screw in the dynamization hole, and there were perfect circles down through skin, drilled and filled the screw. I liked the overall alignment, position, took final radiographs, washed, closed with 0, 2-0 and skin with maggy. The patient will be weightbear as tolerated. Receive perioperative antibiotics, will be admitted to Trauma Service. Job ID: [id number] MTDD
[2020-02-24] MEDS: Acetaminophen 500 MG TAB PO SCH ×2 (17:48→23:51)
[2020-02-25] MEDS: Acetaminophen 325 MG TAB PO SCH ×2 (06:28→12:23)
--- NOTE | 2020-02-25 07:32 | PRG ---
DATE OF SERVICE: 02/25/2020 SUBJECTIVE: Mr. Navarrete is a pleasant 74-year-old male status post fall, right intratrochanteric fracture, resting comfortably in bed, walked about 3 steps yesterday. OBJECTIVE: VITAL SIGNS: Temperature 97.8, pulse 66, respiratory rate 18, blood pressure 120/68. EXTREMITIES: Right lower extremity neurovascularly intact. clean, dry and intact. LABORATORY DATA: H and H pending. IMPRESSION: Right intertrochanteric fracture. ASSESSMENT AND PLAN: The patient will need to begin range of motion. We will need to increase activity as tolerated, likely need placement. Discharge needs DVT prophylaxis. Followed in-house. Job ID: [id number]
[2020-02-25] MEDS ORDERED: traMADol HCl 50 MG TAB PO PRN ×2 (09:00)
[2020-02-25] MEDS ORDERED: Senokot S 8.6-50 MG TAB PO SCH (12:15)
--- NOTE | 2020-02-25 14:17 | CT ---
CT guided percutaneous right nephrostomy: 02/24/2020 HISTORY: 74-year-old male with right obstructive uropathy due to calculus at right UPJ TECHNIQUE: Signed informed consent obtained. Patient placed prone on CT gurney. Skin of right posterior flank pr epared and draped in usual sterile fashion. Entire procedure performed under step CT guidance. 25-gauge needle used to apply buffered lidocaine superficially and into the intercostal muscles at th e right T11-12 rib interspace. 20-gauge AccuStick needle advanced through posterior renal parenchyma, and into the dilated collecting system. 0.018 inch guidewire advanced through the AccuSti ck needle and into the renal pelvis. AccuStick needle exchanged over the guidewire for a 5 Finnish dilator sheath. Dilator and 0.018 inch guidewire exchanged for a 0.035 inch stiff Amplatz short guide wire. 5 Finnish sheath exchanged over the Amplatz guidewire for an 8 Finnish dilator. The 8 Finnish dilator was exchanged over the guidewire for a 8 Finnish nephrostomy catheter with stylette. Stylette and guidewire were removed. Pigtail loop formed and locked into place. Nephrostomy tube connected to external drainage bag, and sutured into place. Patient tolerated procedure well. No complications. FINDINGS: Initial scan through the abdomen demonstrate severe right hydronephrosis, and calculus at right UPJ. Contralateral large multiple left posterior exophytic renal cystic masses. Step fluoroscopy CT images demonstrated in parenchymal advancement of AccuStick needle from a posterior approach into the renal collecting system, followed by 0.018 inch guidewire, 5 Finnish dilator, 0.035 inch guidewire, and finally the percutaneous nephrostomy tube. The scan through the abdomen post deployment demonstra te pigtail loop in the dilated right extrarenal pelvis. IMPRESSION: Successful percutaneous right nephrostomy. 8 Finnish nephrostomy catheter left to external drainage. Transcribed Date/Time: 02/25/2020 2:16 PM
[2020-02-25] MEDS ORDERED: Acetaminophen/Codeine 30-300mg Tablet PO PRN (14:52)
[2020-02-25] MEDS: Oxybutynin 5 MG TAB PO SCH ×2 (15:47→21:17)
[2020-02-25] MEDS: Acetaminophen/Codeine 30-300mg Tablet PO PRN ×2 (15:48→22:36)
--- NOTE | 2020-02-25 16:25 | PRG ---
DATE OF SERVICE: 02/25/2020 SUBJECTIVE: The patient was evaluated today during morning rounds. He was sitting upright in bed, in no acute distress at this time with no complaints. He reports that his pain is well controlled, though is exacerbated with movement. The patient did have a nephrostomy tube placed yesterday and has been draining overnight. He is tolerating a diet well. The patient is agreeable to going to inpatient rehab and the patient has signed a choice letter for [facility] today for referral. We will continue to follow. OBJECTIVE: VITAL SIGNS: Temperature 98.0, pulse 69, respiratory rate 20, 94% on 2 L nasal cannula, and blood pressure 109/67. GENERAL: Elderly male, in no acute distress, lying upright in bed. HEENT: Normocephalic and atraumatic. Trachea midline. RESPIRATORY: Equal rise and fall. The patient in no acute respiratory distress. CARDIAC: Regular rate and rhythm. ABDOMEN: Soft, nontender. Active bowel sounds. MUSCULOSKELETAL: Nephrostomy tube in place and draining at this time. EXTREMITIES: Right lower extremity, bandaging clean, dry, and intact. Extremity neurovascularly intact at this time. ASSESSMENT: 1. Status post ground level fall. 2. Right intertrochanteric femur fracture, postop day #2 intramedullary nail. 3. History of chronic kidney disease secondary to obstructing renal stone, postop day #1 status post right nephrostomy tube. 4. History of lymphoma with bony metastasis. 5. History of hypertension and depression. PLAN: The patient reports good pain control at this time. We will continue current regimen. We will discuss with IR today about VTE prophylaxis for the patient as he recently had a nephrostomy tube placed and want to ensure the proper DVT prophylaxis status post his procedure. The patient has signed a letter for [facility] and is agreeable to going to rehab at this time. Pending acceptance for [facility]. We will continue to follow. The patient was evaluated by and the case was discussed with Dr. Garber during morning rounds and he is agreeable with the plan of care. Job ID: [id number] [facility]
--- NOTE | 2020-02-25 16:31 | PRG ---
DATE OF SERVICE: 02/24/2020 SUBJECTIVE: The patient was evaluated during morning rounds. He was sitting upright in bed, in no acute distress. The patient was encouraged to eat on morning rounds as he had not yet begun eating. He did complain of somewhat of a sore throat, though this is expected after his procedure yesterday. Discussed plans on having Dr. Kendall come by and see the patient in the morning and the patient was agreeable with the plan of care. OBJECTIVE: VITAL SIGNS: Temperature 98.4, pulse 87, respiratory rate 16, 95% on room air, blood pressure 119/71. GENERAL: The patient is an elderly man, sitting upright in bed, in no acute distress. HEENT: Normocephalic and atraumatic. RESPIRATORY: Equal rise and fall. The patient is in no acute respiratory distress. CARDIAC: Regular rate and rhythm. ABDOMEN: Soft, nontender, nondistended, positive bowel sounds. EXTREMITIES: Dressing over the right hip clean, dry, and intact. Right lower extremity neurovascularly intact. LABORATORY DATA: White count 9.7, hemoglobin 11.4, hematocrit 34.9, platelet count 278. Sodium 140, potassium 3.8, chloride 109, carbon dioxide 23, BUN 20, creatinine 2.11, phosphorus 3.0, magnesium 2.1. DIAGNOSTIC IMAGING: Abdomen and pelvis CT: Initial scan through the abdomen demonstrates severe right hydronephrosis, calculus at the right UPJ. Contralateral large multiple left posterior exophytic renal cystic masses. Step fluoroscopy CT images demonstrated parenchymal advancement of AccuStick needle from a posterior approach into the renal collecting system, followed by 0.018-inch guidewire, 5-Welsh dilator, a 0.035-inch guidewire, followed by the percutaneous nephrostomy tube. The scan through the abdomen post deployment demonstrates pigtail loop in the dilated right extrarenal pelvis. Impression; successful percutaneous right nephrostomy. Eight-Welsh nephrostomy catheter left to external drainage. ASSESSMENT: 1. Status post ground level fall. 2. Right intertrochanteric femur fracture, postop day one status post intramedullary nailing of right intertrochanteric hip fracture. 3. Acute pain secondary to above. 4. History of chronic kidney disease secondary to obstructing renal stone. 5. History of lymphoma with bony metastasis. 6. History of hypertension and depression. 7. Status post percutaneous right nephrostomy catheter placement by Dr. Kendall. PLAN: The patient is postop day one status post right medullary nail placement and postop day zero status post right nephrostomy tube placement. The patient tolerated both procedures well. He was able to tolerate a diet after his surgery yesterday. He reports that his pain is well controlled. His right lower extremity is neurovascularly intact and the bandaging is clean, dry, and intact at this time. Plan will be continued supportive therapy with pain medication, physical therapy , and occupational therapy at this time. The patient will continue to be offered a diet at this time as he is status post both procedures. Case management to work on possible placement for the patient at this time, as it is determined that the patient has fair rehab potential and PT is recommended, rehab versus retirement unit at this time. We will continue to follow the patient, continue to monitor urinary output status post his nephrostomy tube, and continue supportive care. The case was discussed with Dr. Garber during morning rounds and he is agreeable with the plan of care. Job ID: [id number] [facility]
[2020-02-25] MEDS: Sulfameth/Trimethoprim DS 800-160mg TAB PO SCH (21:17)
[2020-02-25] MEDS: Enoxaparin Sodium 30 MG/0.3 ML SYRINGE SC SCH (21:17)
[2020-02-25] MEDS: Senokot S 8.6-50 MG TAB PO SCH (21:17)
[2020-02-26] MEDS: PARoxetine 20 MG TAB PO SCH (09:07)
[2020-02-26] MEDS: Senokot S 8.6-50 MG TAB PO SCH ×2 (09:07→20:57)
[2020-02-26] MEDS: Tamsulosin HCl 0.4 MG CAP PO SCH (09:08)
[2020-02-26] MEDS: Amlodipine 10 MG TAB PO SCH (09:08)
[2020-02-26] MEDS: Sulfameth/Trimethoprim DS 800-160mg TAB PO SCH ×2 (09:08→20:57)
[2020-02-26] MEDS: Oxybutynin 5 MG TAB PO SCH ×3 (09:08→20:57)
[2020-02-26] MEDS ORDERED: Acetaminophen/Codeine 30-300mg Tablet PO SCH (10:30)
[2020-02-26] MEDS: Acetaminophen/Codeine 30-300mg Tablet PO SCH ×2 (14:09→21:00)
--- NOTE | 2020-02-26 14:20 | PRG ---
DATE OF SERVICE: 02/26/2020 SUBJECTIVE: The patient was evaluated today during morning rounds. He was sitting upright in bed, in no acute distress. He did endorse some pain yesterday afternoon and was unable to perform his afternoon physical therapy due to pain at that time. It was discussed with the patient that we would advance and schedule some of his pain medications at this time to help with his pain. The patient is agreeable to plan of care. We will discuss discontinuing the Verma catheter today. The patient is still pending rehab placement. The patient is agreeable with plan of care with no other complaints. OBJECTIVE: VITAL SIGNS: Temperature 98.1, pulse 77, respiratory rate 14, oxygen saturation 94% on room air, blood pressure 131/75. GENERAL: Elderly male, sitting upright in bed, in no acute distress. HEENT: Normocephalic and atraumatic. Trachea midline. RESPIRATORY: Equal rise and fall. The patient has no respiratory distress. CARDIAC: Regular rate and rhythm. ABDOMEN: Soft, nontender, and nondistended. Nephrostomy tube in place in back and continues to drain fluid. EXTREMITIES: Bandaging clean, dry, and intact. Extremities are neurovascularly intact at this time. ASSESSMENT: 1. Status post ground level fall. 2. Right intertrochanteric femur fracture, postoperative day #3 status post intramedullary nail. 3. History of chronic kidney disease secondary to obstructing renal stone, postoperative day #2 status post right nephrostomy tube. 4. History of lymphoma with bony metastasis. 5. History of hypertension and depression. PLAN: The patient continues to do well. He tolerates p.o., and continues to work with Physical Therapy at this time. We will schedule his Tylenol No. 3 at this time as he was only getting it p.r.n. We will also discontinue his Verma catheter today and ensure that the patient can void before discharge. He has not had a bowel movement yet while being here, and so stool softener will be continued today as well. Case Management continues to work on rehab placement for him, and we will continue to follow along pending placement. The patient had been on oxygen overnight; however, in the room, we were able to wean him to room air, and he was still saturating anywhere between 90% to 94%, so the oxygen was left off at this time. We will continue to monitor and follow. The patient was evaluated by and the case was discussed with Dr. Garber during morning rounds, and he is agreeable with the plan of care. Job ID: [id number] [facility]
[2020-02-26] MEDS: Enoxaparin Sodium 30 MG/0.3 ML SYRINGE SC SCH (20:57)
--- NOTE | 2020-02-27 02:13 | PRG ---
DATE OF SERVICE: 02/27/2020 SUBJECTIVE: The patient is currently on the surgical floor, he is status post ground level fall which he sustained a right intertrochanteric femur fracture in which he has undergone surgical repair. The patient also had a nephrostomy tube placed in his right kidney for a pre-existing condition unrelated to this fall. The patient tolerated both this procedures well. He began working with physical and occupational therapy and he is awaiting placement to rehab. He is tolerating a diet, and his pain is controlled. OBJECTIVE: VITAL SIGNS: Stable. The patient is afebrile. GENERAL: The patient is resting comfortably in bed. He is awake, alert, conversant. He demonstrated that he was able to get above 1500 on his incentive spirometry. LUNGS: Clear to auscultation bilaterally. HEART: Regular rate and rhythm. ABDOMEN: Soft, nontender with active bowel sounds. EXTREMITIES: Neurovascularly intact x4. Postop dressing is clean, dry, and intact. GENITOURINARY: His urostomy tube appears to be functioning properly. ASSESSMENT: 1. Status post ground level fall. 2. Status post open reduction and internal fixation of right proximal femur fracture. 3. Status post nephrostomy tube placement. 4. History of chronic kidney disease. 5. History of hypertension, depression, lymphoma with bony metastasis. PLAN: Plan will be to continue supportive care. Encourage physical and occupational therapy and await placement decision. Job ID: [id number]
[2020-02-27] MEDS: Acetaminophen/Codeine 30-300mg Tablet PO SCH ×3 (05:19→21:17)
[2020-02-27] MEDS: Amlodipine 10 MG TAB PO SCH (08:28)
[2020-02-27] MEDS: Senokot S 8.6-50 MG TAB PO SCH ×2 (08:28→21:17)
[2020-02-27] MEDS: PARoxetine 20 MG TAB PO SCH (08:28)
[2020-02-27] MEDS: Sulfameth/Trimethoprim DS 800-160mg TAB PO SCH ×2 (08:28→21:17)
[2020-02-27] MEDS: Tamsulosin HCl 0.4 MG CAP PO SCH (08:28)
[2020-02-27] MEDS: Oxybutynin 5 MG TAB PO SCH ×3 (08:29→21:17)
[2020-02-27] MEDS: Acetaminophen/Codeine 30-300mg Tablet PO PRN (09:19)
--- NOTE | 2020-02-27 15:45 | PRG ---
DATE OF SERVICE: 02/27/2020 SUBJECTIVE: The patient was evaluated today during morning rounds. He was sitting upright in his bed in no acute distress. He reports that his pain is well tolerated at this time and he continues to work with Physical and Occupational therapy. He is currently pending rehab placement and this was discussed. He is postop day 4 status post an intramedullary nail placement in the right hip for intertrochanteric hip fracture and postop day 3 from a right nephrostomy tube. OBJECTIVE: VITAL SIGNS: Temperature 98.1 Fahrenheit, pulse 70, respiratory rate 16, oxygen saturation 96% on room air, blood pressure 143/84. GENERAL: Elderly male, sitting upright in bed, in no acute distress. HEENT: Normocephalic and atraumatic. Trachea midline. LUNGS: Equal rise and fall. Nonlabored. The patient is in no acute respiratory distress. HEART: Regular rate and rhythm. ABDOMEN: Soft, nontender, nondistended, active bowel sounds. EXTREMITIES: Postop dressing is clean, dry, and intact. The patient is neurovascularly intact x4. MUSCULOSKELETAL: Nephrostomy tube in place and draining appropriately. LABORATORY DATA: No new laboratory data to report. IMAGING: No new imaging to report. ASSESSMENT: 1. Status post ground level fall. 2. Status post open reduction and internal fixation of right proximal femur fracture. 3. Status post nephrostomy tube placement. 4. History of chronic kidney disease. 5. History of hypertension, depression, lymphoma with bony metastases. PLAN: We will continue supportive care at this time. The patient continues to work with Physical and Occupational therapy and tolerates his diet well. Nephrostomy tube is in place and continues to work appropriately at this time. We have weaned the patient's oxygen and will continue to encourage incentive spirometry. His Verma catheter has been discontinued. The patient is currently awaiting placement for [facility] and will follow up with this. The patient was evaluated by and the case was discussed with Dr. Garber during morning rounds and he is agreeable with the plan of care. Job ID: [id number] [facility]
[2020-02-27] MEDS: Enoxaparin Sodium 30 MG/0.3 ML SYRINGE SC SCH (21:17)
--- NOTE | 2020-02-28 02:25 | PRG ---
DATE OF SERVICE: 02/28/2020 SUBJECTIVE: The patient is currently on the surgical floor. He is status post ground level fall, in which he sustained a right proximal femur fracture. He has undergone open reduction and internal fixation of same. He also underwent a nephrostomy tube placement due to preexisting condition that was previously planned prior to this fall. He is currently awaiting placement. He is tolerating a diet. His pain is controlled, and he has been working with Physical and Occupational Therapy. OBJECTIVE: VITAL SIGNS: Stable. The patient is afebrile. GENERAL: The patient is resting comfortably in bed. He is awake, alert, conversant, appropriate. HEENT: Unremarkable. LUNGS: Clear to auscultation bilaterally. HEART: Regular rate and rhythm. ABDOMEN: Soft, nontender with active bowel sounds. EXTREMITIES: Neurovascularly intact x4. Postop dressing is clean, dry, intact. ASSESSMENT: 1. Status post ground level fall. 2. Status post open reduction and internal fixation of right proximal femur fracture. 3. Status post nephrostomy tube placement. 4. History of chronic kidney disease, hypertension, depression, lymphoma with bony metastasis. PLAN: To continue supportive care. Encourage physical and occupational therapy and await final placement decision. Job ID: [id number]
[2020-02-28] MEDS: Acetaminophen/Codeine 30-300mg Tablet PO SCH (05:42)
[2020-02-28] MEDS ORDERED: Polyethylene Glycol 3350 17 GM Packet PO SCH (09:00)
[2020-02-28] MEDS: Acetaminophen/Codeine 30-300mg Tablet PO PRN (09:33)
[2020-02-28] MEDS: PARoxetine 20 MG TAB PO SCH (09:34)
[2020-02-28] MEDS: Senokot S 8.6-50 MG TAB PO SCH (09:34)
[2020-02-28] MEDS: Amlodipine 10 MG TAB PO SCH (09:34)
[2020-02-28] MEDS: Tamsulosin HCl 0.4 MG CAP PO SCH (09:34)
[2020-02-28] MEDS: Oxybutynin 5 MG TAB PO SCH (09:34)
[2020-02-28] MEDS: Sulfameth/Trimethoprim DS 800-160mg TAB PO SCH (09:34)
[2020-02-28 11:00] VITALS: BP 126/68; TEMP 98
--- NOTE | 2020-03-01 11:21 | EKG ---
Test Reason : Blood Pressure : / mmHG Vent. Rate : 091 BPM Atrial Rate : 091 BPM P-R Int : 160 ms QRS Dur : 084 ms QT Int : 414 ms P-R-T Axes : 042 030 088 degrees QTc Int : 509 ms Sinus rhythm with Premature atrial complexes Abnormal ECG Noew slight ST depression V3-V5 compared to 01/07/2020 Confirmed by CRISS HARKINS DO ([id number]), international editorial producer RENNY STEVENS ([id number]) on 03/01/2020 11:20:58 AM Referred By: Confirmed By:CRISS HARKINS DO
== END 2020-02-28 13:05 | DRG 481 ==
LOC: ERS 13:50 → SDC/OP 17:21 → SURG B 19:02
PROVIDERS: ADMIT Specialist; ATTEND Specialist
PROC: 0QH634Z Insertion of Internal Fixation Device into Right Upper Femur, Percutaneous Approach (ICD-10-PCS; principal; 2020-02-23)
PROC: 3E0234Z Introduction of Serum, Toxoid and Vaccine into Muscle, Percutaneous Approach (ICD-10-PCS; 2020-02-23)
PROC: 0T9330Z Drainage of Right Kidney Pelvis with Drainage Device, Percutaneous Approach (ICD-10-PCS; 2020-02-25)
PROC: BT11ZZZ Fluoroscopy of Right Kidney (ICD-10-PCS; 2020-02-25)
DX: S72.141A Displaced intertrochanteric fracture of right femur, initial encounter for closed fracture (principal); C82.90 Follicular lymphoma, unspecified, unspecified site; C79.51 Secondary malignant neoplasm of bone; N13.2 Hydronephrosis with renal and ureteral calculous obstruction; E78.5 Hyperlipidemia, unspecified; E78.00 Pure hypercholesterolemia, unspecified; F41.9 Anxiety disorder, unspecified; F32.9 Major depressive disorder, single episode, unspecified; Z60.2 Problems related to living alone; K21.9 Gastro-esophageal reflux disease without esophagitis; H91.90 Unspecified hearing loss, unspecified ear; N18.9 Chronic kidney disease, unspecified; I12.9 Hypertensive chronic kidney disease with stage 1 through stage 4 chronic kidney disease, or unspecified chronic kidney disease; W01.0XXA Fall on same level from slipping, tripping and stumbling without subsequent striking against object, initial encounter; Z86.73 Personal history of transient ischemic attack (TIA), and cerebral infarction without residual deficits; Y92.009 Unspecified place in unspecified non-institutional (private) residence as the place of occurrence of the external cause; Z79.82 Long term (current) use of aspirin; Z79.899 Other long term (current) drug therapy; Z23 Encounter for immunization; Z87.442 Personal history of urinary calculi
CPT/HCPCS: 36415; 70450; 71045; 74176; 76000; 77002; 80048; 80053; 83735; 84100; 84484; 85025; 85610; 85730; 86850; 86900; 86901; 90471; 90715; 93005; 96361; 96374; 96375; 96376; C1713; C1729; G0390; J0690; J1100; J1650; J2001; J2250; J2270; J2405; J2704; J3010

== ENCOUNTER 2020-04-07 19:13 | Observation (INO) | payer MEDICARE, OTHER ==
[2020-04-07] MEDS ORDERED: Morphine 4 MG/ML VIAL ONE ×2 (19:37→21:50)
[2020-04-07 19:57] LABS: #Lymphocytes 1.6 thou/uL (1.20-3.40); #Monocytes 0.9 thou/uL (0.11-0.59); #Neutrophils 11.5 thou/uL (1.40-6.50); %Basophils 0.1 % (0.0-1.0); %Eosinophils 0.2 % (0.0-10.0); %Lymphocytes 11.5 % (21.0-51.0); %Monocytes 6.1 % (0.0-10.0); Mean Corpuscular HGB CONC 32.8 g/dL (32.0-36.0); Mean Corpuscular Hemoglobin 30.8 pg (27.0-31.0); Mean Corpuscular Volume 94.1 fL (78.0-98.0); Mean Platelet Volume 7.5 fL (7.4-10.4); Platelet Count 329 thou/uL (130-400); RBC Distribution Width 12.9 % (11.5-14.5); Red Blood Cell (RBC) Count 4.22 mill/uL (4.70-6.10); White Blood Cell (WBC) Count 14.1 thou/uL (4.8-10.8)
[2020-04-07 20:19] LABS: ALT (SGPT) 8 U/L (8-55); AST (SGOT) 14 U/L (5-34); Albumin 3.5 g/dL (3.4-4.8); Alkaline Phosphatase 240 U/L (40-110); Anion Gap 13 mmol/L (10-20); BUN (Urea Nitrogen) 18 mg/dL (8.4-25.7); Bilirubin, Total 0.5 mg/dL (0.2-1.2); Calc. Creatinine Clearance 0 mL/min (70-130); Calcium 8.7 mg/dL (7.8-10.44); Carbon Dioxide 25 mmol/L (23-31); Chloride 105 mmol/L (98-107); Estimated GFR-MDRD 40; Globulin 3.1 g/dL (2.4-3.5); Glucose 134 mg/dL (83-110); Potassium 3.4 mmol/L (3.5-5.1); Protein, Total 6.6 g/dL (5.8-8.1); Sodium 140 mmol/L (136-145)
[2020-04-07 20:28] LABS: Bilirubin Negative (Negative); Blood, Urine Negative (Negative); Clarity Clear (Clear); Glucose, Urine (Dipstick) Normal (Negative); Ketone, Urine 20 mg/dL (Negative); Leukocyte Negative Leu/uL (Negative); Nitrite Negative (Negative); Protein, Urine (Dipstick) 20 mg/dL (Neg-Trace); Specific Gravity, Urine 1.019 (1.002-1.036); pH, Urine 6.5 (5.0-9.0)
--- NOTE | 2020-04-07 20:35 | CT ---
CT STONE PROTOCOL: 04/07/20 HISTORY: 74-year-old male with dislodgement of nephrostomy tube. COMPARISON: Comparison is made with the contrast enhanced CT of 07/01/19 and the images from right sided nephrost inder tube placement of 02/24/20. FINDINGS: Absence of IV and oral contrast reduces the sensitivity of the exam, particularly for evaluation of s olid organs and bowel. Chronic changes in the lung bases are again seen. Calcified gallstones are present. The 3.5 and 3 cm mass-like densities in the left upper quadrant are stable and likely splenules. The patient is post s plenectomy. There has been interval dislodgement of the right nephrostomy tube with tip in the posterior abdomina l wall. Bilateral renal cysts are again seen. There is a right sided hydronephrosis due to a 4 mm obs tructing UPJ calculus. The calculi in the dependent portions of the dilated right renal pelvis are ag ain seen. No left sided hydroureteronephrosis is seen. No free air or free fluid is noted in the abdo men or pelvis. The small bowel loops are not abnormally dilated. There are vascular calcifications without evidence of aneurysmal dilatation of the abdominal aorta. There are degenerative changes in the spine. There a re postop changes and metallic hardware in the right proximal femur. There is fecal material in the c olon and rectum. IMPRESSION: Interval dislodgement of the right nephrostomy tube since 02/24/20. Please see above. POS: OFF
[2020-04-07] MEDS ORDERED: cefTRIAXone\\ROCEPHIN 1 GM VIAL ONE (21:50)
[2020-04-08 00:43] VITALS: BMI 28.3
[2020-04-08] MEDS: Sodium Chloride 0.9% 1,000 ML IV SCH ×3 (01:10→17:55)
[2020-04-08] MEDS: Morphine 2 MG/ML VIAL SLOW IVP PRN ×2 (02:39→14:57)
--- NOTE | 2020-04-08 05:21 | HP ---
REASON FOR ADMISSION: Back pain. HISTORY OF PRESENT ILLNESS: This is a 74-year-old male patient, who approximately a month and a half ago had a nephrostomy tube placed by Dr. Kendall. Yesterday, he bent forward to scrap picker something and then started having pain on the right side, where the nephrostomy tube is. He does report decreased urine output as well, the pain has been severe, worse with change in position. He decided to present to the ER today. CAT scan of the abdomen and pelvis does show dislodgement of his nephrostomy tube. The patient is currently in the ER, appears to be comfortable. Denies fevers. Denies chills. He is scheduled to undergo a percutaneous lithotripsy on the of this month. Reviewing his records, the patient was admitted to our hospital in February of 2020 after a fall and was noted to have right intertrochanteric femoral fracture. He did undergo open reduction and internal fixation and has been undergoing physical therapy. He does report that he is still not able to ambulate appropriately. PAST MEDICAL HISTORY: 1. Lymphoma. 2. 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 3. Obstructive nephrolithiasis on the right. 4. High blood pressure. 5. Depression. PAST SURGICAL HISTORY: Right ureteroscopy with laser and . PHYSICAL EXAMINATION: GENERAL: Awake, alert, and oriented, does not appear in distress. VITAL SIGNS: His blood pressure is 127/71, heart rate 71, and temperature is 98.4. HEENT: Head is nontraumatic and normocephalic. Pupils equal and reactive. Extraocular movements are intact. Nonicteric sclerae. Well injected conjunctivae. Oral mucosa normal. Nasal mucosa normal. NECK: Supple. No adenopathy. No murmur. Thyroid is not palpable. Trachea is midline. No supraclavicular lymphadenopathy. CARDIAC: S1 and S2. Regular. No murmur. No gallops. No friction rubs. No displacement of PMI. LUNGS: Clear to auscultation bilaterally. No wheezes. No rhonchi. No crackles. ABDOMEN: Bowel sounds are positive. Nontender abdomen. No hepatosplenomegaly. EXTREMITIES: No lower extremity edema. No cyanosis. NEURO: Cranial nerves 2 through 12 within normal limits. Normal motor function. Normal sensory function. Normal reflexes. LABORATORY DATA: Blood work shows a WBC of 14.1, hemoglobin of 13, platelets of 329, and neutrophil count of 82%. Sodium 140, potassium 3.4, bicarb 25, BUN 18, and creatinine 1.7 and baseline around 2. CT of the abdomen and pelvis shows interval dislodgement of the right nephrostomy tube since February 24, 2020. ASSESSMENT AND PLAN: This is a 74-year-old male patient, who is somewhat of a poor historian. He does have a nephrostomy tube placed a couple weeks ago and appears to have dislodgement of that tube. ER physician did contact Urology and they will see him in consultation and give recommendation, whether they want to replace the tube themselves or want IR to do it tonight. I will admit him and we will provide him with pain control, also gentle fluid hydration. We will recheck his labs in the morning. For deep venous thrombosis prophylaxis, he will be on sequential compression devices. For his chronic kidney disease, we will continue to monitor his kidney function and he will be on IV fluid hydration. I did discuss with him his code status and he wishes to be a full code. I am awaiting his med rec to be done, so I can reconcile his current medications. Job ID: [id number]
[2020-04-08] MEDS ORDERED: hydrALAZINE 20 MG/ML VIAL SLOW IVP PRN (05:44)
[2020-04-08 06:14] LABS: Hemoglobin 14.2 g/dL (14.0-18.0); Mean Corpuscular HGB CONC 31.4 g/dL (32.0-36.0); Mean Corpuscular Hemoglobin 29.5 pg (27.0-31.0); Mean Corpuscular Volume 94.1 fL (78.0-98.0); Mean Platelet Volume 8.2 fL (7.4-10.4); Platelet Count 367 thou/uL (130-400); RBC Distribution Width 12.9 % (11.5-14.5); Red Blood Cell (RBC) Count 4.81 mill/uL (4.70-6.10); White Blood Cell (WBC) Count 15.9 thou/uL (4.8-10.8)
[2020-04-08 06:29] LABS: Anion Gap 17 mmol/L (10-20); BUN (Urea Nitrogen) 18 mg/dL (8.4-25.7); Calc. Creatinine Clearance 50 mL/min (70-130); Calcium 9.4 mg/dL (7.8-10.44); Carbon Dioxide 22 mmol/L (23-31); Chloride 105 mmol/L (98-107); Estimated GFR-MDRD 41; Glucose 149 mg/dL (83-110); Potassium 3.4 mmol/L (3.5-5.1); Sodium 141 mmol/L (136-145)
[2020-04-08 08:03] LABS: Band 1 % (5-11); Eosinophils 1 % (0-10); Lymphocytes 16 % (21-51); MDiff Complete? YES; Monocytes 8 % (0-10); Neutrophil 73 % (42-75); RBC Morphology Normal; Reactive Lymphocytes 1 % (0-10)
[2020-04-08] MEDS ORDERED: Heparin 5,000 UNITS/ML VIAL SC SCH (09:00)
[2020-04-08] MEDS ORDERED: Midazolam HCl 2 mg/2 ml Vial ONE (10:41)
[2020-04-08] MEDS ORDERED: Fentanyl 100 MCG/2 ML VIAL ONE (10:41)
[2020-04-08] MEDS ORDERED: Sodium Bicarbonate 2.5 MEQ/5 ML VIAL ONE (10:41)
[2020-04-08] MEDS ORDERED: Potassium Chloride 20 MEQ TAB PO SCH (10:45)
[2020-04-08] MEDS ORDERED: CEFAZOLIN 2 GM in Premix Bag 1 BAG IVPB SCH (11:00)
--- NOTE | 2020-04-08 11:18 | CON ---
DATE OF CONSULTATION: 04/08/2020 SERVICE: Nephrology. REASON FOR CONSULTATION: Renal insufficiency. REQUESTING PHYSICIAN: Melinda Singer MD CHIEF COMPLAINT: Right-sided flank pain. HISTORY OF PRESENT ILLNESS: A 74-year-old male patient with known history of renal cell carcinoma with bony metastasis associated with obstructive uropathy, status post right-sided nephrostomy tube placement, who was admitted due to acute onset of right flank pain after bending down. The patient reported decreased drainage from the nephrostomy tube. Further evaluation with CT scan showed dislodgement of his nephrostomy tube, and he was admitted for further evaluation and treatment. He also was found to have elevated creatinine, hence Nephrology consulted. The patient also was noted to have obstructive uropathy from nephrolithiasis, for which percutaneous lithotripsy is planned on April 14. The patient continued to have pain, which has improved, but denied fever, nausea, vomiting, chest pain, or shortness of breath. PAST MEDICAL HISTORY: 1. Lymphoma. 2. Metastatic renal cell carcinoma. 3. Obstructive uropathy. 4. Obstructing nephrolithiasis on the right. 5. Hypertension. 6. Depression. PAST SURGICAL HISTORY: 1. Right nephrostomy tube placement. 2. Open reduction and internal fixation for right hip fracture. 3. Splenectomy. 4. Hand surgery. FAMILY HISTORY: Reviewed, but not significant. No significant history of premature cardiac disease. SOCIAL HISTORY: The patient lives alone. However, family is said to be near by. He denied alcohol, tobacco, or recreational drug use. ALLERGIES: NO KNOWN DRUG ALLERGIES REPORTED. MEDICATIONS: Prior to hospital, medications are as follows: 1. Tramadol 50 mg q.12. 2. Acetaminophen 500 mg q.4 p.r.n. 3. Amlodipine 5 mg p.o. daily. 4. Aspirin 81 mg p.o. daily. 5. Lipitor 40 mg p.o. daily at bedtime. 6. Ipratropium albuterol 3 mL nebulization q.4 hours p.r.n. 7. Omeprazole 20 mg p.o. daily. 8. Zofran ODT 1 tablet q.6 p.r.n. 9. Paxil 40 mg p.o. daily. 10. MiraLAX 17 g p.o. daily. 11. Sennosides-docusate sodium one tablet p.o. daily. 12. Flexeril 5 mg p.o. t.i.d. p.r.n. REVIEW OF SYSTEMS: 12-point review of systems performed was negative other than pertinent positives and negatives included in the history of present illness. PHYSICAL EXAMINATION: VITAL SIGNS: Temperature 98.0, pulse 69, respiratory rate 18, SpO2 of 95% on room air, and blood pressure is 149/80. GENERAL: Male patient, in mild painful distress. Afebrile. Anicteric. Acyanotic. HEENT: Normocephalic, atraumatic. Oral mucosa is moist. NECK: Supple with no JVD. CARDIOVASCULAR: Regular rhythm and rate with occasional missed beat. Normal heart sounds one and two. RESPIRATORY: Fair air entry bilaterally with some transmitted breath sounds. No obvious crackles or rhonchi or use of accessory muscles appreciated. GI: Full, soft, nontender, nondistended with normal bowel sounds. Right flank nephrostomy tube noted with some blood-stained urine in drainage bag. EXTREMITIES: Trace bilateral leg edema, especially on the right side noted. No erythema appreciated. INTELLIGENCE CLERK: Conscious and alert and oriented x3 with appropriate mental status. Cranial nerves 2 through 12 are grossly intact. DIAGNOSTIC DATA: CBC today showed WBC count of 15.9, hemoglobin of 14.2, and platelets of 367. Chemistry showed sodium 141, potassium 3.4, chloride 105, CO2 of 22, BUN 18, creatinine 1.67, glucose 149, and calcium 9.4. On presentation yesterday, sodium was 140, potassium 3.4, chloride 105, CO2 of 25, BUN 18, and creatinine 1.7. Review of medical record however showed that best creatinine seems to be 1.3 to 1.5. Urinalysis on presentation showed light yellow clear urine with pH of 6.5, specific gravity of 1.019, urine protein of 20 mg/dL, normal glucose, positive ketone, negative blood, nitrite, bilirubin, and leukocyte esterase. CT scan of the abdomen and pelvis stone protocol showed interval dislodgement of the right nephrostomy tube, relative to study of February 24, 2020. Also noted were chronic changes in the lung base as well as calcified gallstone and 3.5 and 3.0 masslike densities in the left upper quadrant, which are stable the patient is status post splenectomy. Bilateral renal cysts were again noted as well as right-sided hydronephrosis due to a 4-mm obstructing UPJ calculus. The calculi in the dependent portions of the dilated right renal pelvis were again seen. No left-sided hydronephrosis is seen. ASSESSMENT: 1. NIRU on CKD: Due to obstructive uropathy. 2. Obstructive uropathy due to obstructing renal stone, status post nephrostomy tube placement. 3. Right-sided hydronephrosis. 4. Hypertension. 5. History of renal cell carcinoma. 6. Right nephrostomy tube dislodgement. PLAN: 1. We will continue supportive care and monitor renal function. 2. Urology consult appreciated. Interventional Radiology to reposition the nephrostomy tube. We will restart amlodipine to get adequate BP control. 3. We will also replete serum potassium with potassium chloride. Further treatment to follow depending on hospital course. Job ID: [id number] MTDD
[2020-04-08 13:16] LABS: SARS-CoV-2 MS2 Positive; SARS-CoV-2 N Gene Negative; SARS-CoV-2 S Gene Negative; SARS-CoV-2 by NAA Not Detected (NotDetected); SARS-CoV-2 orf1ab Negative
--- NOTE | 2020-04-08 14:20 | CON ---
DATE OF CONSULTATION: 04/08/2020 REASON FOR CONSULTATION: Displaced right nephrostomy tube. CHIEF COMPLAINT: Right flank pain. HISTORY OF PRESENT ILLNESS: A 74-year-old male with history of kidney stones. He was recently taken for right ureteroscopy. However, I was unable to access his stone or bypass it to place a stent, noting the stone impacted in the right UPJ. He then had a nephrostomy tube placed by Interventional Radiology with plans to undergo percutaneous access for antegrade ureteroscopy next week. Yesterday, he developed pain on his right flank around the nephrostomy tube and deeper in towards his kidney. The pain continued to worsen, reaching he thinks 8/10 at worst. He was seen in the ER late last night. He underwent CT scan, which showed that the right nephrostomy tube had become dislodged. This morning, he tells me that he continues to have right-sided flank pain, but denies nausea, fevers, dysuria, or hematuria. PAST MEDICAL HISTORY: Lymphoma, kidney stones, hypertension, and depression. Please note that the patient does not have renal cell carcinoma. PAST SURGICAL HISTORY: Right hip surgery in February of this year, ureteroscopy, percutaneous nephrostomy tube, and hand surgery in 2019. FAMILY HISTORY: Reviewed and noncontributory. SOCIAL HISTORY: No substance abuse. Nonsmoker. ALLERGIES: NO KNOWN ALLERGIES. MEDICATIONS: Reviewed. No pertinent urology medication. REVIEW OF SYSTEMS: Twelve-point review of systems performed negative except as mentioned in my HPI. PHYSICAL EXAMINATION: VITAL SIGNS: Afebrile, vitals stable. No urine output has been recorded overnight. GENERAL: No acute distress, conversant. HEENT: Head, normocephalic and atraumatic. Extraocular movements intact. Sclerae are nonicteric. NECK: Supple. Trachea midline. LUNGS: Unlabored breathing. Symmetric chest expansion. HEART: Regular rate and rhythm. ABDOMEN: Soft, nontender, and nondistended. Mild right flank tenderness. No suprapubic tenderness. GENITOURINARY: Right PCN, not currently draining fluid/urine. SKIN: Warm and dry. NEUROLOGIC: Alert and oriented x3. PSYCHIATRIC: Normal mood and affect. EXTREMITIES: No peripheral edema or clubbing. LABORATORY DATA: White count 14.1 yesterday, 15.9 this morning, 73% neutrophils. Creatinine 1.67, down slightly from 1.7 yesterday. Urinalysis negative for infection. I personally reviewed his CT scan, which does show that the right nephrostomy tube has come out of the kidney with right hydronephrosis. Right UPJ obstruction secondary to kidney stone with hydronephrosis, dislodged percutaneous nephrostomy tube. I personally do not perform nephrostomy tube placements. However, I have contacted Interventional Radiology to correct this issue. I did ask them to please leave plenty of tube in the kidney, so that we do not have this issue especially in light of needing access for surgery next week. As long as the patient is improving overnight with no fevers, he can be discharged home tomorrow with followup for surgery on Monday. Job ID: [id number]
--- NOTE | 2020-04-08 14:21 | SPC ---
PROCEDURE: Ultrasound and fluoroscopic guided percutaneous right nephrostomy tube placement with antegrade right pyelogram PROVIDED CLINICAL HISTORY: Right hydronephrosis with obstructing right UPJ calculus. Patient's right-sided nephrostomy tube was inadvertently removed. Replacement of the right nephrostomy tube was requested. COMPARISON: CT abdomen and pelvis on 04/07/2020 TECHNIQUE: The procedure including the risks and complications were explained to the patient, and informed conse nt was obtained. The patient was placed on the angiography table in the prone position. 2 g of Ancef were administered intravenously prior to the procedure as requested. The left nephrostomy tube and surrounding area were meticulously prepped and draped in usual sterile fashion. The nephrostomy tube was shown to be outside of the renal collecting system on recent CT exam. A 5 Fr POPAPPenstein catheter and guidewire were unable to be manipulated through the tract and into the renal collecting system. As a result, an appropriate access site was determined with ultrasound radha nce. The skin and subcutaneous tissues were infiltrated with buffered 1% lidocaine for local anesthesia at the intended puncture site. Utilizing concurrent real-time ultrasound guidance, a 22-gauge Chiba needle was advanced into a posterior mid right renal calyx. The inner stylette was removed with a ret urn of what appeared to be clear urine. Small amount contrast was injected to confirm placement in the renal collecting system. A small skin incision was made, and the needle was exchanged over a 0.01 8 inch guidewire for a 6 Prydeinig AccuStick sheath with inner cannula and dilator. The catheter was advanced, and the inner dilator and cannula as well as guidewire were removed. There was a return of cloudy urine. The AccuStick sheath was exchanged over a 0.035 inch Amplatz guidewire for a 8 Prydeinig tissue dilator followed by placement of an 8 Prydeinig percutaneous nephrostomy tube. Approximately 120 mL of cloudy urine with debris was aspirated. Small amount of contrast was injected confirming placement of the ne phrostomy tube in the renal pelvis. Catheter was flushed and placed to gravity drainage. Catheter was sutured in place utilizing 2-0 Ethilon suture material. A dry sterile dressing was placed. The patient tolerated the procedure well and without immediate complication. Fluoroscopy: Time-4.8 minutes Dose-41,927 mGy centimeter squared IMPRESSION: 1. Severe right hydronephrosis. 2. Technically successful right percutaneous nephrostomy tube placement utilizing ultrasound and fluo roscopic guidance. A posterior calyx midportion right kidney was accessed.
[2020-04-08] MEDS ORDERED: Acetaminophen/Codeine 30-300mg Tablet PO PRN (15:06)
[2020-04-08] MEDS ORDERED: traMADol HCl 50 MG TAB PO PRN (15:06)
[2020-04-08] MEDS ORDERED: Acetaminophen 500 MG TAB PO PRN (15:06)
[2020-04-08] MEDS ORDERED: Ondansetron ODT 4 MG TAB PO PRN (15:06)
[2020-04-08] MEDS ORDERED: Cyclobenzaprine 10 MG TAB PO PRN (15:06)
[2020-04-08] MEDS ORDERED: Iopamidol 300 61% 50 ML VIAL FS ONE (15:35)
--- NOTE | 2020-04-08 20:15 | PDOC.HOSPP ---
- Subjective Encounter Date: 04/08/20 Encounter Time: 16:30 Subjective: Patient seen and examined for nephrostomy tube malfunction. New nephrostomy tube was placed today. Patient denies any fever, chills, abdominal pain or nausea. Pain controlled. - Objective Vital Signs & Weight: Vital Signs (12 hours) Temp Pulse Resp BP BP BP Pulse Ox 04/08/20 19:52 99.7 F H 75 16 117/57 L 93 L 04/08/20 19:34 99.7 F H 75 16 117/57 L 93 L 04/08/20 17:11 99.5 F 90 18 142/67 H 95 04/08/20 15:02 99.3 F 71 20 166/78 H 92 L 04/08/20 13:16 98.3 F 74 20 115/83 95 04/08/20 08:30 95 Weight Weight 197 lb 8.547 oz I&O: 04/07/20 04/08/20 04/09/20 06:59 06:59 06:59 Intake Total 2151 Output Total 300 Balance 1851 Result Diagrams: 04/08/20 05:30 04/09/20 05:24 Radiology Reviewed by me: Yes (CT abdomen reviewed) Hospitalist ROS - Review of Systems Respiratory: denies: cough, dry, shortness of breath, hemoptysis, SOB with excertion, pleuritic pain, sputum, wheezing, other Cardiovascular: denies: chest pain, palpitations, orthopnea, paroxysmal noc. dyspnea, edema, light headedness, other - Medication Medications: Active Medications Generic Name Dose Route Start Last Admin Trade Name Freq PRN Reason Stop Dose Admin Hydralazine HCl 5 mg 04/08/20 05:44 04/08/20 06:00 Apresoline SLOW IVP 5 mg Q4H PRN Administration for SBP more then 140 Sodium Chloride 1,000 mls @ 75 mls/hr 04/08/20 00:30 04/08/20 17:55 Normal Saline 0.9% IV 1,000 mls .[id number] CEDRIC Administration Morphine Sulfate 2 mg 04/08/20 00:37 04/08/20 14:57 Morphine SLOW IVP 2 mg Q4H PRN Administration Pain - Exam General Appearance: NAD Neck: supple, no JVD Heart: no gallops, no rubs, normal peripheral pulses Respiratory: no wheezes, no rales, no ronchi Gastrointestinal: non-tender, non-distended, normal bowel sounds Gastrointestinal - other findings: Nephrostomy tube + Neurological: no new deficit Psychiatric: normal affect, A&O x 3 Hosp A/P - Plan DVT proph w/SCDs Dislodged nephrostomy tube causing right flank pain Hypertension Anxiety History of lymphoma History of renal cell carcinoma with bony metastasis Hypokalemia Acute kidney injury on CKD stage IIIPOA Hyperlipidemia Plan:: Nephrostomy tube was replaced. Continue empiric antibiotics. Continue IV fluids. Replace potassium. Continue amlodipine. Continue Paxil. Await urine cultures
[2020-04-08] MEDS ORDERED: Atorvastatin Calcium 40 MG TAB PO SCH (21:00)
[2020-04-08] MEDS ORDERED: cefTRIAXone\\ROCEPHIN 1 GM in Sodium Chloride 0.9% 100 ML IVPB SCH (22:00)
[2020-04-09] MEDS: Sodium Chloride 0.9% 1,000 ML IV SCH ×2 (03:26→06:13)
[2020-04-09 06:13] LABS: Albumin 2.9 g/dL (3.4-4.8); Anion Gap 10 mmol/L (10-20); BUN (Urea Nitrogen) 13 mg/dL (8.4-25.7); BUN/Creatinine Ratio 9.35; Calc. Creatinine Clearance 60 mL/min (70-130); Calcium 8.4 mg/dL (7.8-10.44); Carbon Dioxide 25 mmol/L (23-31); Chloride 107 mmol/L (98-107); Estimated GFR-MDRD 50; Glucose 90 mg/dL (83-110); Phosphorus 2.2 mg/dL (2.3-4.7); Potassium 3.4 mmol/L (3.5-5.1); Sodium 139 mmol/L (136-145)
[2020-04-09] MEDS: Amlodipine 5 MG TAB PO SCH ×2 (08:14→16:40)
[2020-04-09] MEDS ORDERED: PARoxetine 20 MG TAB PO SCH (09:00)
[2020-04-09] MEDS ORDERED: Senokot S 8.6-50 MG TAB PO SCH (09:00)
[2020-04-09] MEDS ORDERED: Potassium Chloride 20 MEQ TAB PO SCH (09:00)
[2020-04-09] MEDS ORDERED: Polyethylene Glycol 3350 17 GM Packet PO SCH (09:00)
[2020-04-09] MEDS ORDERED: Amlodipine 5 MG TAB PO SCH (09:00)
[2020-04-09] MEDS ORDERED: K-Phos Neutral 250 MG TAB PO SCH (09:45)
[2020-04-09] MEDS ORDERED: Sodium Chloride 0.9% 1,000 ML IV SCH (12:00)
[2020-04-09 12:02] VITALS: BP 100/58; TEMP 97.8
[2020-04-09] MEDS ORDERED: MEROPENEM 1 GM/50 ML 1 GM in Premix Bag 1 BAG IVPB SCH (14:00)
--- NOTE | 2020-04-09 16:03 | DIS ---
DATE OF ADMISSION: 04/07/2020 DATE OF DISCHARGE: 04/09/2020 DISCHARGE DISPOSITION: Home. FOLLOWUP: 1. Follow up with primary care physician at [facility]. 2. Follow up with Nephrology, Dr. Alatorre, and Urology, Dr. Kendall. ALLERGIES: NO KNOWN DRUG ALLERGIES. DISCHARGE MEDICATIONS: Same as admission medications. The patient was advised to hold aspirin per Urology. The patient was evaluated on the day of discharge. Denies any new complaints. No fever or chills reported. BRIEF HOSPITAL COURSE: The patient is a 74-year-old male with lymphoma and renal cell carcinoma in the past with nephrostomy tube, presented to the emergency room with back pain. His workup was consistent with dislodgement of the nephrostomy tube. A new nephrostomy tube was placed by Radiology. His CT abdomen showed severe right hydronephrosis. The patient was evaluated by Urology. Per Urology recommendation, the patient was monitored overnight. He had some electrolyte abnormalities, which have been replaced. A repeat basic metabolic profile with phosphorus is recommended. Primary care physician advised to follow. The patient was found to have acute kidney injury on CKD, stage 3. His creatinine on admission was 1.70. He was evaluated by Nephrology. Nephrology was consulted by the admitting physician. His renal function has improved. He appears stable for discharge. FINAL DIAGNOSES: 1. Dislodged nephrostomy tube causing right flank pain. 2. Severe right-sided hydronephrosis. 3. Hypertension. 4. Anxiety. 5. History of lymphoma. 6. History of the renal cell carcinoma with bony metastasis. 7. Hypokalemia. 8. Acute kidney injury on chronic kidney disease, stage 3. 9. Hyperlipidemia. The patient understands the above plan of care. Job ID: [id number]
== END 2020-04-09 11:00 | disposition home or self-care (01) ==
LOC: ERS 19:13 → T4-A 22:30
PROVIDERS: ADMIT Internal Medicine; ATTEND Internal Medicine
DX: T83.022A Displacement of nephrostomy catheter, initial encounter (principal); N13.30 Unspecified hydronephrosis; I12.9 Hypertensive chronic kidney disease with stage 1 through stage 4 chronic kidney disease, or unspecified chronic kidney disease; N18.3 Chronic kidney disease, stage 3 (moderate); E87.6 Hypokalemia; E78.5 Hyperlipidemia, unspecified; F41.9 Anxiety disorder, unspecified; F32.9 Major depressive disorder, single episode, unspecified; Z79.899 Other long term (current) drug therapy; Z85.53 Personal history of malignant neoplasm of renal pelvis
CPT/HCPCS: 36415; 50431; 50436; 74176; 75984; 80048; 80053; 80069; 81003; 85007; 85025; 85027; 87077; 87086; 87635; 96361; 96365; 96366; 96372; 96375; 96376; C1729; G0378; J0360; J0696; J2250; J2270; J3010; J3490; Q9967; U0003

== ENCOUNTER 2020-05-01 10:00 | Inpatient (IN) | payer OTHER ==
[2020-05-01 13:21] LABS: #Basophils 0.1 thou/uL (0.0-0.2); #Eosinphils 0.2 thou/uL (0.0-0.7); #Lymphocytes 3.5 thou/uL (1.20-3.40); #Monocytes 0.6 thou/uL (0.11-0.59); #Neutrophils 3.7 thou/uL (1.40-6.50); %Basophils 0.8 % (0.0-1.0); %Eosinophils 2.5 % (0.0-10.0); %Lymphocytes 43.4 % (21.0-51.0); %Monocytes 7.7 % (0.0-10.0); %Neutrophils 45.7 % (42.0-75.0); Hemoglobin 13.9 g/dL (14.0-18.0); Mean Corpuscular Hemoglobin 30.1 pg (27.0-31.0); Mean Corpuscular Volume 94.1 fL (78.0-98.0); Mean Platelet Volume 7.9 fL (7.4-10.4); Platelet Count 405 thou/uL (130-400); RBC Distribution Width 13.1 % (11.5-14.5); White Blood Cell (WBC) Count 8.1 thou/uL (4.8-10.8)
[2020-05-01 13:38] LABS: Anion Gap 16 mmol/L (10-20); BUN (Urea Nitrogen) 19 mg/dL (8.4-25.7); Calc. Creatinine Clearance 0 mL/min (70-130); Calcium 9.3 mg/dL (7.8-10.44); Carbon Dioxide 23 mmol/L (23-31); Chloride 107 mmol/L (98-107); Estimated GFR-MDRD 44; Glucose 112 mg/dL (83-110); Potassium 3.8 mmol/L (3.5-5.1); Sodium 142 mmol/L (136-145)
[2020-05-01 16:37] LABS: INR-International Normal Ratio 0.9; Prothrombin Time 12.5 sec (12.0-14.7)
[2020-05-02 15:57] LABS: SARS-CoV-2 MS2 Positive; SARS-CoV-2 N Gene Negative; SARS-CoV-2 S Gene Negative; SARS-CoV-2 by NAA Not Detected (NotDetected); SARS-CoV-2 orf1ab Negative
[2020-05-05] MEDS ORDERED: EPHEDRINE 25 MG/5 ML SYRINGE ONE (09:43)
[2020-05-05] MEDS ORDERED: PHENYLEPHRINE-NS 100 MCG/ML 10 ML SYRINGE ONE (09:43)
[2020-05-05] MEDS ORDERED: Lidocaine 1% PF 5 ML VIAL ONE (09:43)
[2020-05-05] MEDS ORDERED: Vecuronium 10 MG VIAL ONE (09:43)
[2020-05-05] MEDS ORDERED: Glycopyrrolate 0.2 MG/ML 5 ML SYRINGE ONE (09:43)
[2020-05-05] MEDS ORDERED: Rocuronium Bromide 10 MG/ML (10ML VIAL) ONE (09:43)
[2020-05-05] MEDS ORDERED: Ondansetron PF 4 MG/2 ML Vial ONE (09:43)
[2020-05-05] MEDS ORDERED: Dexamethasone 20 MG/5 ML VIAL ONE (09:43)
[2020-05-05] MEDS ORDERED: PROPOFOL 200 MG/20 ML VIAL ONE (09:43)
[2020-05-05] MEDS ORDERED: Fentanyl 250 MCG/5 ML VIAL ONE (12:44)
[2020-05-05] MEDS ORDERED: Lidocaine 1% w/Epinephrine 1:100K 20 ML VIAL ONE (12:56)
[2020-05-05] MEDS ORDERED: Bupivacaine 0.25% HCL 30 ML VIAL ONE (12:56)
[2020-05-05] MEDS ORDERED: Bupivacaine PF 0.5% 30 ML VIAL ONE (13:00)
[2020-05-05] MEDS ORDERED: Propofol 1,000 MG/100 ML VIAL IV ONE ×3 (13:19→15:48)
[2020-05-05] MEDS ORDERED: Fentanyl 100 MCG/2 ML VIAL ONE (14:42)
[2020-05-05] MEDS ORDERED: Rocuronium Bromide 50 MG/5 ML VIAL ONE (15:48)
[2020-05-05] MEDS ORDERED: HYDROmorphone 0.5 MG/0.5 ML SYRINGE ONE (15:49)
[2020-05-05] MEDS ORDERED: SUGAMMADEX SODIUM 200 MG/2 ML VIAL ONE (16:56)
[2020-05-05] MEDS ORDERED: fentaNYL Citrate/PF 2,000 MCG in Sodium Chloride 0.9% 60 ML IV PRN (17:29)
[2020-05-05] MEDS ORDERED: Naloxone HCl 0.4 mg/ml Vial IV PRN (17:29)
[2020-05-05] MEDS ORDERED: diphenhydrAMINE 50 MG/ML VIAL IVP PRN ×2 (17:29→18:13)
[2020-05-05] MEDS ORDERED: Ondansetron HCl/PF 4 MG/2 ML Vial IVP PRN (17:29)
[2020-05-05] MEDS ORDERED: Promethazine HCl 25 MG/ML VIAL SLOW IVP PRN (17:29)
[2020-05-05] MEDS ORDERED: Ondansetron PF 4 MG/2 ML Vial IVP PRN ×2 (17:29→18:13)
[2020-05-05] MEDS ORDERED: HYDROmorphone 2 MG/ML VIAL SLOW IVP PRN (17:29)
[2020-05-05] MEDS ORDERED: Promethazine HCl 25 MG/ML VIAL IM PRN (17:29)
[2020-05-05] MEDS ORDERED: Communication Order-Pharmacy FS SCH (17:30)
[2020-05-05] MEDS ORDERED: Zolpidem Tartrate 5 MG TAB PO PRN (18:13)
[2020-05-05] MEDS ORDERED: Hyoscyamine Sulfate SL 0.125 mg Tablet SL PRN (18:13)
[2020-05-05] MEDS ORDERED: Ketorolac Tromethamine 30 MG/ML VIAL IVP PRN (18:13)
[2020-05-05] MEDS ORDERED: HYDROcodone/Acetaminophen 5/325 mg Tablet PO PRN ×2 (18:13→18:18)
[2020-05-05] MEDS ORDERED: CEFAZOLIN 2 GM in Sodium Chloride 0.9% 100 ML IVPB SCH (18:13)
[2020-05-05] MEDS ORDERED: Morphine 4 MG/ML VIAL SLOW IVP PRN (18:13)
--- NOTE | 2020-05-05 19:16 | OP ---
DATE OF PROCEDURE: 05/05/2020 PREOPERATIVE DIAGNOSES: Right ureteropelvic junction stone, right ureteropelvic junction obstruction. PROCEDURES PERFORMED: Aborted robot-assisted laparoscopic right pyeloplasty, open dismembered complicated pyeloplasty, lysis of adhesions. ANESTHESIA: General. COMPLICATIONS: Significant abdominal adhesions requiring conversion to open. BLOOD LOSS: 500. SPECIMEN: Right UPJ specimen. DESCRIPTION OF PROCEDURE: After informed consent, the patient was taken to the operating room, transferred to the table under his own power. Anesthesia was established. A time-out was performed showing the correct patient, site, and procedure. Preoperative antibiotics were administered. He was prepped and draped in a modified left flank position taking care to pad all pressure points. I then attempted to insufflate using the Veress needle in the right upper quadrant due to his previous midline incision, however, was unable to adequately access the abdominal cavity with a Veress needle. I then inserted at my typical location above the umbilicus with good insufflation afterwards. I then placed a 12 mm trocar superior and lateral to the umbilicus using a cutdown method. The camera was then passed through this noting no adhesions overlying the insertion site. However, it became clear that the patient had significant adhesions of his omentum along the midline incision and in the right upper quadrant. He also had significant intestinal adhesions. I placed the left lower quadrant robotic trocar and spent about 45 minutes trying to take down adhesions with laparoscopic scissors, however, was unable to take down enough adhesions for adequate access and so at this point, I elected to convert to open. We made sure the counts were correct after the robotic portion and then set up for the open portion. I made a right anterior subcostal incision, which was carried down to fascia, which I carefully opened. The patient had significant adhesions of his omentum along the right upper quadrant and along the midline scar. These were all taken down with a combination of electrocautery and blunt dissection. He also had significant adhesions of his small bowel along the right side of the abdomen, which had to be taken down sharply. I spent another 45 minutes taking down adhesions open. I was then able to deflect the colon medially and kocherized the duodenum exposing the renal hilum. The patient had significant inflammation around the kidney from his nephrostomy tube and attempt at PCNL. I was able to carefully dissect along the ureter until the UPJ was identified and again found to be densely adherent to the surrounding fat. I was able, with great care, to dissect the renal pelvis to the point that I was able to remove the scar tissue at the UPJ with the stone in place. This was passed off as specimen. The ureter was then dissected and mobilized and then spatulated for about 1.5 cm. The nephrotstomy tube was removed and the scar tissue along the tract taken down. The superior pole of the kidney was then mobilized to allow tension free anastomosis. A wire was passed down the ureter and a 6 x 28 double-J stent selected and passed distally through the ureter leaving only the curl protruding from the top of the ureter, which should provide more than sufficient length to ensure adequate placement into the bladder. I then ensured a widely open renal pelvis and then placed apical sutures using 3-0 Monocryl through the renal pelvis, connecting it to the apices of the special aided ureter. The curl of the stent was then placed into the renal pelvis, and the previously placed sutures were used to perform a running anastomosis on two sides. This was noted to be watertight at the end. The abdomen was copiously irrigated, and the omentum was placed along the incision. A 10-Czech drain was placed through the right side of the abdomen with the end of the drain in the right paracolic gutter. The bowel was inspected noting no injuries. I then closed the fascia in 2 layers with 0 PDS suture, copiously irrigated the subcutaneous tissues and closed the skin with maggy. The near midline camera port incision was closed with Monocryl and finally, all incisions were dressed with gauze and tape. A drain sponge was placed after suturing the drain in place with nylon. Verma catheter was left at the end of the case. All counts were correct. The patient was awoken from anesthesia, transferred back to his hospital bed and taken to PACU in stable condition, where he will be admitted. Job ID: [id number] [facility]
[2020-05-05] MEDS: Sodium Chloride 0.9% 1,000 ML IV SCH (20:45)
[2020-05-05] MEDS: Docusate 100 MG CAP PO SCH (20:46)
[2020-05-05] MEDS: Atorvastatin Calcium 40 MG TAB PO SCH (20:46)
[2020-05-05] MEDS: CEFAZOLIN 2 GM in Premix Bag 1 BAG IVPB SCH (20:46)
[2020-05-05 22:52] VITALS: BMI 29.6
[2020-05-06] MEDS: Sodium Chloride 0.9% 1,000 ML IV SCH ×3 (03:13→20:58)
[2020-05-06] MEDS: CEFAZOLIN 2 GM in Premix Bag 1 BAG IVPB SCH (03:13)
[2020-05-06 05:24] LABS: #Lymphocytes 2.2 thou/uL (1.20-3.40); #Monocytes 1.5 thou/uL (0.11-0.59); #Neutrophils 7.6 thou/uL (1.40-6.50); %Basophils 0.1 % (0.0-1.0); %Lymphocytes 19.6 % (21.0-51.0); %Monocytes 13.4 % (0.0-10.0); %Neutrophils 66.9 % (42.0-75.0); Hemoglobin 12.4 g/dL (14.0-18.0); Mean Corpuscular HGB CONC 32.3 g/dL (32.0-36.0); Mean Corpuscular Hemoglobin 29.8 pg (27.0-31.0); Mean Corpuscular Volume 92.3 fL (78.0-98.0); Mean Platelet Volume 7.6 fL (7.4-10.4); Platelet Count 309 thou/uL (130-400); RBC Distribution Width 12.7 % (11.5-14.5); Red Blood Cell (RBC) Count 4.17 mill/uL (4.70-6.10); White Blood Cell (WBC) Count 11.4 thou/uL (4.8-10.8)
[2020-05-06 05:44] LABS: Anion Gap 13 mmol/L (10-20); BUN (Urea Nitrogen) 20 mg/dL (8.4-25.7); Calc. Creatinine Clearance 61 mL/min (70-130); Calcium 8.5 mg/dL (7.8-10.44); Carbon Dioxide 24 mmol/L (23-31); Chloride 105 mmol/L (98-107); Estimated GFR-MDRD 48; Glucose 133 mg/dL (83-110); Potassium 3.9 mmol/L (3.5-5.1); Sodium 138 mmol/L (136-145)
[2020-05-06] MEDS: Amlodipine 5 MG TAB PO SCH (09:09)
[2020-05-06] MEDS: Enoxaparin Sodium 40 MG/0.4 ML SYRINGE SC SCH (09:09)
[2020-05-06] MEDS: Docusate 100 MG CAP PO SCH ×2 (09:09→20:59)
[2020-05-06] MEDS: Tamsulosin HCl 0.4 MG CAP PO SCH (09:09)
[2020-05-06] MEDS: PARoxetine 20 MG TAB PO SCH (09:09)
--- NOTE | 2020-05-06 09:22 | PRG ---
DATE OF SERVICE: 05/06/2020 SUBJECTIVE: No acute events overnight. 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 He denies nausea, fevers, chest pain, or difficulty breathing. OBJECTIVE: VITAL SIGNS: Afebrile. Vitals are stable overnight. Urine output and drain output do not seem to have been recorded properly. There is scant serosanguineous drainage in his 10-Vincentian PRADEEP drain. LUNGS: Unlabored breathing, nasal cannula in place. HEART: Regular rate and rhythm. ABDOMEN: Soft, appropriately tender, and nondistended. Dressings in place, not soiled. Verma catheter in good position. Draining clear urine. LABORATORY DATA: Reviewed. White count 11.4, hemoglobin 12.4. Chemistry; creatinine 1.43 down from 1.57 preop. ASSESSMENT AND PLAN: Postoperative day 1, aborted robot pyeloplasty with open lysis of adhesions and pyloroplasty with stent placement. Routine postop care: Deep venous thrombosis and gastrointestinal prophylaxis, incentive spirometry, out of bed to chair and ambulate, Verma catheter out today if he is able to move around well enough to use a bedside urinal. Discharge planning: I anticipate he will be here through the end of the week. Job ID: [id number]
[2020-05-06] MEDS: Atorvastatin Calcium 40 MG TAB PO SCH (20:59)
[2020-05-07] MEDS: Sodium Chloride 0.9% 1,000 ML IV SCH ×2 (06:17→14:54)
--- NOTE | 2020-05-07 08:44 | PRG ---
DATE OF SERVICE: 05/07/2020 SUBJECTIVE: No acute events overnight. Pain much better controlled than yesterday. He denies difficulty breathing, chest pains, or fevers. OBJECTIVE: VITAL SIGNS: Afebrile, vitals stable. Still on 2 L nasal cannula. Good urine output, PRADEEP drain 40 mL overnight. GENERAL: No acute distress. LUNGS: Unlabored breathing. HEART: Regular rate and rhythm. ABDOMEN: Soft, appropriately tender, and nondistended. PRADEEP drain removed. Verma catheter removed. ASSESSMENT AND PLAN: Postoperative day #2, aborted right robot-assisted laparoscopic pyeloplasty with open lysis of adhesions and open right pyeloplasty with stent placement. Routine postop care: Gastrointestinal and deep venous thrombosis prophylaxis, incentive spirometry, up to chair and ambulating today. 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 Discharge planning: If the patient is able to ambulate on his own over the next 24 to 48 hours, he will discharge home. Otherwise, we may need to consider rehab options for him. Job ID: [id number]
[2020-05-07] MEDS: PARoxetine 20 MG TAB PO SCH (09:00)
[2020-05-07] MEDS: Tamsulosin HCl 0.4 MG CAP PO SCH (09:00)
[2020-05-07] MEDS: Amlodipine 5 MG TAB PO SCH (09:00)
[2020-05-07] MEDS: Enoxaparin Sodium 40 MG/0.4 ML SYRINGE SC SCH (09:00)
[2020-05-07] MEDS: Docusate 100 MG CAP PO SCH ×2 (09:00→20:54)
[2020-05-07] MEDS: Acetaminophen 500 MG TAB PO SCH ×2 (13:11→17:23)
[2020-05-07] MEDS ORDERED: HYDROcodone/Acetaminophen 5/325 mg Tablet PO PRN ×2 (15:45)
[2020-05-07] MEDS ORDERED: traMADol HCl 50 MG TAB PO PRN (15:45)
[2020-05-07] MEDS ORDERED: Sodium Chloride 0.9% 1,000 ML IV SCH (15:45)
[2020-05-07] MEDS ORDERED: Acetaminophen 325 MG TAB PO PRN (17:01)
[2020-05-07] MEDS: Atorvastatin Calcium 40 MG TAB PO SCH (20:53)
[2020-05-08 06:38] LABS: #Basophils 0.1 thou/uL (0.0-0.2); #Eosinphils 0.2 thou/uL (0.0-0.7); #Lymphocytes 3.7 thou/uL (1.20-3.40); #Monocytes 1.2 thou/uL (0.11-0.59); %Basophils 0.5 % (0.0-1.0); %Eosinophils 2.1 % (0.0-10.0); %Lymphocytes 36.5 % (21.0-51.0); %Monocytes 11.4 % (0.0-10.0); %Neutrophils 49.4 % (42.0-75.0); Hemoglobin 9.2 g/dL (14.0-18.0); Mean Corpuscular HGB CONC 30.9 g/dL (32.0-36.0); Mean Corpuscular Hemoglobin 29.2 pg (27.0-31.0); Mean Corpuscular Volume 94.2 fL (78.0-98.0); Platelet Count 222 thou/uL (130-400); RBC Distribution Width 12.8 % (11.5-14.5); Red Blood Cell (RBC) Count 3.14 mill/uL (4.70-6.10); White Blood Cell (WBC) Count 10.2 thou/uL (4.8-10.8)
[2020-05-08 06:56] LABS: Anion Gap 9 mmol/L (10-20); BUN (Urea Nitrogen) 15 mg/dL (8.4-25.7); Calc. Creatinine Clearance 70 mL/min (70-130); Calcium 8.2 mg/dL (7.8-10.44); Carbon Dioxide 26 mmol/L (23-31); Chloride 108 mmol/L (98-107); Estimated GFR-MDRD 57; Glucose 93 mg/dL (83-110); Potassium 3.4 mmol/L (3.5-5.1); Sodium 140 mmol/L (136-145)
[2020-05-08] MEDS: Amlodipine 5 MG TAB PO SCH (07:49)
[2020-05-08] MEDS: Potassium Chloride 20 MEQ TAB PO SCH (07:50)
[2020-05-08] MEDS: Docusate 100 MG CAP PO SCH ×2 (07:50→20:02)
[2020-05-08] MEDS: Tamsulosin HCl 0.4 MG CAP PO SCH (07:50)
[2020-05-08] MEDS: PARoxetine 20 MG TAB PO SCH (07:50)
[2020-05-08] MEDS: Enoxaparin Sodium 40 MG/0.4 ML SYRINGE SC SCH (07:51)
[2020-05-08] MEDS: 1/2 NS w/KCL 20 mEq 1,000 ML IV SCH ×2 (09:33→17:43)
--- NOTE | 2020-05-08 09:54 | PRG ---
DATE OF SERVICE: 05/08/2020 SUBJECTIVE: No acute events overnight. He has developed some nausea this morning and tells me that he feels bloated. He has not had any passage of gas or bowel movements. He denies chest pain, fevers, or chills. Afebrile, oxygen saturation in the low 90s on 1 to 2 L nasal cannula. He has not been using his incentive spirometer. Marginal urine output voiding 250 overnight with 200 on CIC first thing this morning. OBJECTIVE: GENERAL: No acute distress. LUNGS: Shallow but unlabored breathing, nasal cannula in place. HEART: Regular rate and rhythm. ABDOMEN: Soft, appropriately tender over incision, minimally distended this morning, few bowel sounds. SKIN: Warm and dry. EXTREMITIES: No peripheral edema. LABORATORY DATA: Reviewed. White count 10.2, hemoglobin 9.2. Creatinine 1.25 down from 1.57 preop, potassium 3.4. ASSESSMENT AND PLAN: Postoperative day #3, aborted right robot-assisted pyeloplasty with open lysis of adhesions and open right pyeloplasty with stent placement. Routine postop care: Deep venous thrombosis and gastrointestinal prophylaxis, I instructed the patient that he needs to be using the incentive spirometer several times every hour and asked his nurse to help assist with this. He needs to be out of bed to a chair and ambulating throughout the day. Postop ileus is not unexpected given his significant lysis of adhesions. We will continue IV fluids. Discharge planning: At this point given the patient's conditioning, I expect that he will be in the hospital through the weekend with plans for discharge to rehab at the beginning of next week. Job ID: [id number]
[2020-05-08] MEDS: Atorvastatin Calcium 40 MG TAB PO SCH (20:02)
[2020-05-09] MEDS: 1/2 NS w/KCL 20 mEq 1,000 ML IV SCH ×3 (01:04→16:08)
[2020-05-09] MEDS: Potassium Chloride 20 MEQ TAB PO SCH (08:37)
[2020-05-09] MEDS: Enoxaparin Sodium 40 MG/0.4 ML SYRINGE SC SCH (08:37)
[2020-05-09] MEDS: Docusate 100 MG CAP PO SCH ×2 (08:37→20:07)
[2020-05-09] MEDS: Tamsulosin HCl 0.4 MG CAP PO SCH (08:37)
[2020-05-09] MEDS: Amlodipine 5 MG TAB PO SCH (08:37)
[2020-05-09] MEDS: PARoxetine 20 MG TAB PO SCH (08:38)
--- NOTE | 2020-05-09 12:13 | PRG ---
DATE OF SERVICE: 05/09/2020 SUBJECTIVE: The patient states that he does not feel well. He denies actually having nausea or any vomiting or uncontrolled pain, but just states he feels very weak and lethargic. Otherwise, he has no significant complaints. He has very poor appetite. He does report passing gas, but has not had a bowel movement. He states he did walk yesterday, although it was a very small amount. He also stated he was sitting up in a chair yesterday. OBJECTIVE: VITAL SIGNS: Temperature 98.4, pulse 66, respirations 18, blood pressure 138/79, saturations 95% on 3 L nasal cannula. GENERAL: Appears fatigued, but is answering questions appropriately. Alert and communicative. CARDIOVASCULAR: Regular rate and rhythm. ABDOMEN: Soft, mildly tender to palpation. Nondistended. Positive bowel sounds. Incision is currently dressed. : Unremarkable. The patient does have a bedside urinal, which demonstrates clear yellow urine. EXTREMITIES: Trace edema bilaterally. LABORATORY EVALUATION: There are no new labs today. ASSESSMENT AND PLAN: A 74-year-old white male with a right robotic pyeloplasty, which was converted to an open procedure secondary to dense adhesions. Currently, postoperative day 4. He has still elements of an ileus with poor appetite and poor p.o. intake, but he is passing gas. I suspect that his ileus is resolving. I will keep his diet order in place but told him to go very slow and eat only what he feels and drink only what he feels. We will keep his IV fluids going for now since he is not taking much in. I recommended that he keep getting up and walking around. Failure to get up and move around will result in significant or increased risk for complications such as blood clots, pneumonias, or significant deconditioning as well as prolonging his ileus. He understands. I have recommended he get up at least 3 times a day to go walk and spend at least 3 hours in a chair that did not have to be consecutively as well as continue use of his incentive spirometer. The patient is already on Lovenox for DVT prophylaxis. I will plan some repeat labs tomorrow to ensure that everything is going okay for him physiologically, and we will continue to follow until Dr. Kendall returns on Monday. Job ID: [id number]
[2020-05-09] MEDS: Atorvastatin Calcium 40 MG TAB PO SCH (20:07)
[2020-05-10] MEDS: 1/2 NS w/KCL 20 mEq 1,000 ML IV SCH ×2 (00:48→08:17)
[2020-05-10 05:14] LABS: #Basophils 0.1 thou/uL (0.0-0.2); #Eosinphils 0.4 thou/uL (0.0-0.7); #Lymphocytes 3.1 thou/uL (1.20-3.40); #Monocytes 0.9 thou/uL (0.11-0.59); #Neutrophils 3.3 thou/uL (1.40-6.50); %Basophils 0.8 % (0.0-1.0); %Eosinophils 5.4 % (0.0-10.0); %Lymphocytes 39.5 % (21.0-51.0); %Neutrophils 42.4 % (42.0-75.0); Hemoglobin 9.6 g/dL (14.0-18.0); Mean Corpuscular HGB CONC 31.2 g/dL (32.0-36.0); Mean Corpuscular Hemoglobin 29.4 pg (27.0-31.0); Mean Corpuscular Volume 94.4 fL (78.0-98.0); Mean Platelet Volume 7.9 fL (7.4-10.4); Platelet Count 291 thou/uL (130-400); RBC Distribution Width 12.8 % (11.5-14.5); Red Blood Cell (RBC) Count 3.25 mill/uL (4.70-6.10); White Blood Cell (WBC) Count 7.8 thou/uL (4.8-10.8)
[2020-05-10 05:37] LABS: Anion Gap 10 mmol/L (10-20); BUN (Urea Nitrogen) 11 mg/dL (8.4-25.7); Calc. Creatinine Clearance 89 mL/min (70-130); Calcium 8.1 mg/dL (7.8-10.44); Carbon Dioxide 24 mmol/L (23-31); Chloride 107 mmol/L (98-107); Estimated GFR-MDRD 75; Glucose 88 mg/dL (83-110); Sodium 137 mmol/L (136-145)
[2020-05-10] MEDS: PARoxetine 20 MG TAB PO SCH (08:17)
[2020-05-10] MEDS: Potassium Chloride 20 MEQ TAB PO SCH (08:17)
[2020-05-10] MEDS: Amlodipine 5 MG TAB PO SCH (08:17)
[2020-05-10] MEDS: Docusate 100 MG CAP PO SCH ×2 (08:18→19:54)
[2020-05-10] MEDS: Tamsulosin HCl 0.4 MG CAP PO SCH (08:18)
[2020-05-10] MEDS: Enoxaparin Sodium 40 MG/0.4 ML SYRINGE SC SCH (08:18)
--- NOTE | 2020-05-10 13:29 | PRG ---
DATE OF SERVICE: 05/10/2020 SUBJECTIVE: The patient states he is feeling fine. His appetite has increased. He is taking more p.o. fluids in. He is having flatus. No bowel movement. He was up out of bed about three times yesterday and walking quite well. He spent some time in the chair. He states he is overall feeling better. OBJECTIVE: VITAL SIGNS: Temperature 98.4, pulse 69, respirations 14, blood pressure 122/76, saturation 94% on room air. GENERAL: No apparent distress. Communicative and alert. CARDIOVASCULAR: Regular rate and rhythm. ABDOMEN: Soft, nontender, nondistended. Incision is clean, dry, and intact. : Unremarkable. EXTREMITIES: No edema. LABORATORY EVALUATION: Full set of labs are in the [facility] system, which I have reviewed. Of note, the patient's white count is 7.8, hemoglobin 9.6. Creatinine of 0.98. ASSESSMENT AND PLAN: A 74-year-old white male, status post open pyeloplasty on the right postop day 5. He seems to be making a good recovery. He is still not taking a very good amount of oral intake. I do anticipate that if he is up out of bed more, his appetite and his p.o. intake will improve. I will discontinue his IV fluids today to see if he can keep enough hydration on his own. Additionally, he is still a little weak and with him living with only his son, I would request that he be a little bit more ambulatory before he gets discharged home. We can make a final decision tomorrow, but it will be unlikely he will get any kind of dispo tomorrow given that it is Labor Day. As such, I told the patient he will most likely need to stay until Monday until Dr. Kendall can return, at which point his disposition can be evaluated either to go to a rehab if his strength is still not adequate or to home if he is able to ambulate and get up adequately on his own as well. We will also re-evaluate his p.o. intake status. Job ID: [id number]
[2020-05-10] MEDS: Atorvastatin Calcium 40 MG TAB PO SCH (19:54)
[2020-05-11] MEDS: Amlodipine 5 MG TAB PO SCH (08:09)
[2020-05-11] MEDS: Enoxaparin Sodium 40 MG/0.4 ML SYRINGE SC SCH (08:09)
[2020-05-11] MEDS: Potassium Chloride 20 MEQ TAB PO SCH (08:09)
[2020-05-11] MEDS: Docusate 100 MG CAP PO SCH ×2 (08:09→21:14)
[2020-05-11] MEDS: PARoxetine 20 MG TAB PO SCH (08:09)
[2020-05-11] MEDS: Tamsulosin HCl 0.4 MG CAP PO SCH (08:09)
--- NOTE | 2020-05-11 12:32 | PRG ---
DATE OF SERVICE: 05/11/2020 SUBJECTIVE: The patient states he is feeling very good. He has been up out of bed, walking. He is able to get out of bed on his own and use his walker, which he also uses at home. His pain is well controlled on p.o. pain medication. He has not needed any IV fluids. He is drinking clear liquids well as well as tolerating a regular diet without problems. He had a bowel movement. OBJECTIVE: VITAL SIGNS: Temperature 97.9, pulse 74, respirations 16, blood pressure 137/83, saturation 93% on 2 L nasal cannula. GENERAL: No apparent distress. Communicative and alert. CARDIOVASCULAR: Regular rate and rhythm. ABDOMEN: Soft, nontender, nondistended. Incision is dressed. EXTREMITIES: No edema. ASSESSMENT AND PLAN: A 74-year-old white male, status post robot-assisted converted to open right pyeloplasty, postop day 6. He seems to be doing well and appears to be fully recovered. He could probably go home today. He does not have a ride today. He states he would rather wait until tomorrow. I think this is reasonable. This would allow Dr. Kendall, his primary surgeon, to re-evaluate him one more time before discharge. He states he can get his ride arranged tomorrow. It does appear the patient is ambulating well enough that he probably will not need inpatient rehab. He could probably go home. If home health PT is necessary, this can be arranged as an outpatient. He seems to be doing very well otherwise. Continue the current plan as he is currently undergoing now. Dr. Kendall will resume care tomorrow and can arrange for the patient's discharge if he sees fit. Job ID: [id number]
[2020-05-11] MEDS: Atorvastatin Calcium 40 MG TAB PO SCH (21:14)
[2020-05-12] MEDS: PARoxetine 20 MG TAB PO SCH (08:56)
[2020-05-12] MEDS: Docusate 100 MG CAP PO SCH (08:56)
[2020-05-12] MEDS: Potassium Chloride 20 MEQ TAB PO SCH (08:57)
[2020-05-12] MEDS: Amlodipine 5 MG TAB PO SCH (08:57)
[2020-05-12] MEDS: Tamsulosin HCl 0.4 MG CAP PO SCH (08:57)
[2020-05-12] MEDS: Enoxaparin Sodium 40 MG/0.4 ML SYRINGE SC SCH (08:57)
[2020-05-12 11:07] VITALS: BP 127/77; TEMP 98.2
--- NOTE | 2020-05-12 21:53 | DIS ---
DATE OF ADMISSION: 05/05/2020 DATE OF DISCHARGE: 05/12/2020 ADMISSION DIAGNOSIS: Right ureteral stricture. DISCHARGE DIAGNOSES: Right ureteral stricture, hypertension. HOSPITAL COURSE: The patient underwent an attempt at right robotic pyeloplasty; however, he had significant abdominal adhesions and so the case was converted to open with open lysis of adhesions and right pyeloplasty with stent placement. He had no significant complications from his postop course other than ileus for about 2 days. Over the weekend of May 09 and , he was able to get up out of bed on his own and ambulate in the halls. By postop day #7, he was having no discomfort, tolerating oral diet, having bowel movements, and ambulating on his own. He is stable for discharge home with home health. DISCHARGE PHYSICAL EXAMINATION: GENERAL: No acute distress. HEART: Regular rate and rhythm. LUNGS: Unlabored breathing. ABDOMEN: Soft, nontender, and nondistended. Incision healthy without signs of infection. Brain intact. No flank pain. SKIN: Warm and dry. DISCHARGE MEDICATIONS: Include: 1. Tramadol. 2. Tamsulosin. Follow up plan end of this week or early next week for staple removal. Job ID: [id number]
== END 2020-05-12 15:42 | disposition home health service (06) | DRG 660 ==
LOC: OBSVTOIN 05-05 11:00 → SURG A 05-05 11:00 → INTOOBSV 05-05 11:00 → SJJU 05-05 19:30
PROVIDERS: ADMIT Urology; ATTEND Urology
PROC: 0TQ30ZZ Repair Right Kidney Pelvis, Open Approach (ICD-10-PCS; principal; 2020-05-05)
PROC: 0DNW4ZZ Release Peritoneum, Percutaneous Endoscopic Approach (ICD-10-PCS; 2020-05-05)
PROC: 0DNW0ZZ Release Peritoneum, Open Approach (ICD-10-PCS; 2020-05-05)
PROC: 8E0W0CZ Robotic Assisted Procedure of Trunk Region, Open Approach (ICD-10-PCS; 2020-05-05)
PROC: 0T760DZ Dilation of Right Ureter with Intraluminal Device, Open Approach (ICD-10-PCS; 2020-05-05)
DX: N20.1 Calculus of ureter (principal); K56.7 Ileus, unspecified; C82.90 Follicular lymphoma, unspecified, unspecified site; C82.98 Follicular lymphoma, unspecified, lymph nodes of multiple sites; I10 Essential (primary) hypertension; Z53.31 Laparoscopic surgical procedure converted to open procedure; N13.5 Crossing vessel and stricture of ureter without hydronephrosis
CPT/HCPCS: 36415; 80048; 85025; 85610; 86850; 86900; 86901; 87635; 88305; 96361; 96365; 96366; 96372; G0378; J0690; J1100; J1170; J1650; J2405; J2704; J3010; J3480; J3490; S0020; U0003

== ENCOUNTER 2020-07-04 16:43 | Emergency (ER) | payer OTHER, MEDICARE ==
[~2020-07-04 16:43] MED LIST changes: -Dexamethasone 20 MG/5 ML VIAL ONE; +Iopamidol-370 76% 500 ML 1 ML ONE; -Lidocaine 1% PF 5 ML VIAL ONE; -Ondansetron PF 4 MG/2 ML Vial ONE; -PROPOFOL 200 MG/20 ML VIAL ONE; -Rocuronium Bromide 10 MG/ML (10ML VIAL) ONE; -Succinylcholine Chloride 20 MG/ML 10 ml SYRINGE FS ONE
[2020-07-04 17:36] LABS: #Basophils 0.1 thou/uL (0.0-0.2); #Eosinphils 0.1 thou/uL (0.0-0.7); #Lymphocytes 5.5 thou/uL (1.20-3.40); #Monocytes 1.1 thou/uL (0.11-0.59); #Neutrophils 6.1 thou/uL (1.40-6.50); %Basophils 0.9 % (0.0-1.0); %Eosinophils 0.9 % (0.0-10.0); %Lymphocytes 42.3 % (21.0-51.0); %Monocytes 8.4 % (0.0-10.0); %Neutrophils 47.6 % (42.0-75.0); Hemoglobin 8.1 g/dL (14.0-18.0); Mean Corpuscular Hemoglobin 28.3 pg (27.0-31.0); Mean Corpuscular Volume 85.7 fL (78.0-98.0); Mean Platelet Volume 8.1 fL (7.4-10.4); Platelet Count 361 thou/uL (130-400); RBC Distribution Width 16.2 % (11.5-14.5); Red Blood Cell (RBC) Count 2.85 mill/uL (4.70-6.10); White Blood Cell (WBC) Count 12.9 thou/uL (4.8-10.8)
[2020-07-04 17:55] LABS: ALT (SGPT) 7 U/L (8-55); AST (SGOT) 12 U/L (5-34); Albumin 3.5 g/dL (3.4-4.8); Alkaline Phosphatase 132 U/L (40-110); Anion Gap 15 mmol/L (10-20); BUN (Urea Nitrogen) 40 mg/dL (8.4-25.7); Bilirubin, Total 0.4 mg/dL (0.2-1.2); Calc. Creatinine Clearance 0 mL/min (70-130); Calcium 8.8 mg/dL (7.8-10.44); Carbon Dioxide 19 mmol/L (23-31); Chloride 110 mmol/L (98-107); Estimated GFR-MDRD 45; Globulin 2.7 g/dL (2.4-3.5); Glucose 111 mg/dL (83-110); Potassium 3.4 mmol/L (3.5-5.1); Protein, Total 6.2 g/dL (5.8-8.1); Sodium 141 mmol/L (136-145)
--- NOTE | 2020-07-04 20:26 | CT ---
CT OF THE ABDOMEN AND PELVIS WITH IV CONTRAST INDICATION: 74-year-old male with GI bleed COMPARISON: Prior noncontrast CT the abdomen and pelvis dated April 07, [address] of the chest, a bdomen and pelvis dated July 01, 2019. FINDINGS: ABDOMEN: Lung bases: Small sub-4 mm pulmonary nodule left lower lobe are stable to the most recent comparison. Liver: No focal lesion. Gallbladder: Layered gallstones Pancreas: Normal. Adrenal glands: Normal. Spleen: Small splenules in the left upper quadrant of the abdomen are stable. Kidneys and ureters: Bilateral renal cystic abnormalities are stable. Prominence of the right renal p jaclyn with normal appearance of the right ureter is improved from the prior exam. The mixed density super renal soft tissue mass measuring 3.3 cm is stable. Complex cystic abnormalities of both kidneys are similar. Vasculature: There are severe vascular calcifications seen involving the visualized vasculature. Lymph nodes:No lymphadenopathy. Free fluid in abdomen:No free fluid is evident. PELVIS: Small and large bowel: Small and large bowel reveal no definite acute abnormality. There are a few sc attered colonic diverticula. There is some inflammatory infiltration the right lower quadrant mesentery within changes suggesting interval right lower quadrant incision. Findings are suspicious f or some omental fat necrosis from prior surgery. Appendix:Normal Bladder: Normal. Rectal and perirectal soft tissues:Normal. Reproductive structures: Normal. Free fluid in pelvis: No free fluid is evident. Lymphadenopathy pelvis: No lymphadenopathy is evident. Osseous structures: There is diffuse osteopenia. There is instrumented ununited right intertrochanter ic hip fracture. No definite acute fracture is evident. Chronic transverse process fractures involving the lumbar spine are similar. There is scattered degenerative and osteoarthritic changes. Soft tissues:Normal. IMPRESSION: 1. No definite acute abnormality seen involving the small and large bowel. There is colonic diverticu losis without evidence of active diverticulitis. 2. Findings suspicious for omental fat necrosis in the right lower quadrant of the abdomen. This may be postsurgical in nature. Recommend correlation. 3. Complex cystic abnormalities bilaterally appear similar. The mixed density left suprarenal mass is stable. 4. Slight prominence of the right renal pelvis appears less prominent than on the prior exam. 5. Cholelithiasis 6. Other findings as above
[2020-07-04 22:32] LABS: #Basophils 0.1 thou/uL (0.0-0.2); #Eosinphils 0.1 thou/uL (0.0-0.7); #Lymphocytes 5.2 thou/uL (1.20-3.40); #Monocytes 0.8 thou/uL (0.11-0.59); #Neutrophils 4.6 thou/uL (1.40-6.50); %Basophils 0.9 % (0.0-1.0); %Eosinophils 1.2 % (0.0-10.0); %Monocytes 7.3 % (0.0-10.0); %Neutrophils 42.7 % (42.0-75.0); Hemoglobin 6.7 g/dL (14.0-18.0); Mean Corpuscular HGB CONC 31.8 g/dL (32.0-36.0); Mean Corpuscular Hemoglobin 27.8 pg (27.0-31.0); Mean Corpuscular Volume 87.5 fL (78.0-98.0); Platelet Count 317 thou/uL (130-400); White Blood Cell (WBC) Count 10.9 thou/uL (4.8-10.8)
== END 2020-07-05 01:04 | disposition short-term general hospital (02) ==
LOC: ERS 16:43
DX: K92.1 Melena (principal); E78.5 Hyperlipidemia, unspecified; E78.00 Pure hypercholesterolemia, unspecified; I10 Essential (primary) hypertension; F41.9 Anxiety disorder, unspecified; F32.9 Major depressive disorder, single episode, unspecified; Z79.899 Other long term (current) drug therapy
CPT/HCPCS: 36415; 36430; 74177; 80053; 85025; 86850; 86900; 86901; 93005; 96365; 96366; C9113; J3490; P9016; Q9967

== ENCOUNTER 2020-08-04 15:40 | Outpatient (CLI) | payer MEDICARE, OTHER ==
--- NOTE | 2020-08-04 17:31 | ULT ---
RENAL ULTRASOUND: 08/04/20 INDICATIONS: Follow-up UPJ obstruction. Correlation made to CT abdomen and pelvis 07/04/20 which revealed prominence of the right renal pelvi s. There are multiple bilateral renal cysts are seen which are better defined on the CT of 07/04/20. Rig ht kidney measures 8 cm in length. Left kidney measures approximately 11 cm in length. No evidence of hydronephrosis. No significant right renal pelvis dilatation today. Left kidney unrema rkable other than the numerous cysts. The bladder is poorly distended and appears unremarkable as visualized. IMPRESSION: 1. Numerous bilateral renal cysts which are better defined on recent CT of 07/04/20. 2. Mild cortical thinning bilaterally without evidence of hydronephrosis. POS: [facility]
== END 2020-08-04 15:41 | disposition home or self-care (01) ==
LOC: BICULT 15:40
PROVIDERS: ATTEND Urology
DX: N13.5 Crossing vessel and stricture of ureter without hydronephrosis (principal); N28.1 Cyst of kidney, acquired
CPT/HCPCS: 36415; 76770; 80048

== ENCOUNTER 2020-11-09 13:40 | Outpatient (CLI) | payer OTHER ==
[2020-11-10 02:30] LABS: SARS-CoV-2 PCR by NAA Not Detected (NotDetected)
== END 2020-11-09 13:41 | disposition home or self-care (01) ==
LOC: LABBT 13:40
PROVIDERS: ATTEND Internal Medicine Gastroenterology
DX: Z01.812 Encounter for preprocedural laboratory examination (principal); K92.2 Gastrointestinal hemorrhage, unspecified; Z86.010 Personal history of colon polyps; Z20.822 Contact with and (suspected) exposure to COVID-19
CPT/HCPCS: 87635; U0003; U0005

== ENCOUNTER 2020-11-12 12:02 | Day surgery (SDC) | payer OTHER ==
[2020-10-20 16:46] VITALS: BMI 27.4
[2020-11-12] MEDS ORDERED: PROPOFOL 200 MG/20 ML VIAL ONE (14:15)
== END 2020-11-12 16:00 | disposition home or self-care (01) ==
LOC: SDC 12:02
PROVIDERS: ATTEND Internal Medicine Gastroenterology
PROC: 0DBN8ZX Excision of Sigmoid Colon, Via Natural or Artificial Opening Endoscopic, Diagnostic (ICD-10-PCS; principal; 2020-11-12)
PROC: 0DB38ZX Excision of Lower Esophagus, Via Natural or Artificial Opening Endoscopic, Diagnostic (ICD-10-PCS; principal; 2020-11-12)
PROC: 0DBP8ZX Excision of Rectum, Via Natural or Artificial Opening Endoscopic, Diagnostic (ICD-10-PCS; principal; 2020-11-12)
DX: K57.31 Diverticulosis of large intestine without perforation or abscess with bleeding (principal); K20.91 Esophagitis, unspecified with bleeding; D12.5 Benign neoplasm of sigmoid colon; K62.1 Rectal polyp; K64.8 Other hemorrhoids; K64.4 Residual hemorrhoidal skin tags; K44.9 Diaphragmatic hernia without obstruction or gangrene; I48.91 Unspecified atrial fibrillation; I69.351 Hemiplegia and hemiparesis following cerebral infarction affecting right dominant side; I69.398 Other sequelae of cerebral infarction; H53.9 Unspecified visual disturbance; E78.5 Hyperlipidemia, unspecified; I10 Essential (primary) hypertension; Z85.72 Personal history of non-Hodgkin lymphomas; Z86.010 Personal history of colon polyps; Z86.718 Personal history of other venous thrombosis and embolism; Z79.01 Long term (current) use of anticoagulants; Z79.02 Long term (current) use of antithrombotics/antiplatelets; Z79.899 Other long term (current) drug therapy
CPT/HCPCS: 88305; J2704

== ENCOUNTER 2022-04-14 12:43 | Emergency (ER) | payer OTHER ==
[2022-04-14] MEDS ORDERED: Morphine 2 MG/ML VIAL ONE (13:25)
== END 2022-04-14 15:58 | disposition home or self-care (01) ==
LOC: ERS 12:43
DX: S32.591A Other specified fracture of right pubis, initial encounter for closed fracture (principal); E78.5 Hyperlipidemia, unspecified; I10 Essential (primary) hypertension; Z86.73 Personal history of transient ischemic attack (TIA), and cerebral infarction without residual deficits; Z79.01 Long term (current) use of anticoagulants; Z79.899 Other long term (current) drug therapy; W01.0XXA Fall on same level from slipping, tripping and stumbling without subsequent striking against object, initial encounter
CPT/HCPCS: 72170; 96374; J2270

== ENCOUNTER 2022-05-03 12:33 | Inpatient (IN) | payer MEDICARE, OTHER ==
[2022-05-03 13:55] LABS: #Basophils 0.1 thou/uL (0.0-0.2); #Eosinphils 0.2 thou/uL (0.0-0.7); #Lymphocytes 2.1 thou/uL (1.20-3.40); #Monocytes 0.8 thou/uL (0.11-0.59); %Basophils 1.2 % (0.0-1.0); %Eosinophils 1.8 % (0.0-10.0); %Lymphocytes 22.4 % (21.0-51.0); %Monocytes 8.7 % (0.0-10.0); %Neutrophils 65.9 % (42.0-75.0); Mean Corpuscular HGB CONC 33.2 g/dL (32.0-36.0); Mean Corpuscular Hemoglobin 31.4 pg (27.0-31.0); Mean Corpuscular Volume 94.5 fL (78.0-98.0); Mean Platelet Volume 8.3 fL (7.4-10.4); Platelet Count 460 thou/uL (130-400); RBC Distribution Width 13.5 % (11.5-14.5); Red Blood Cell (RBC) Count 5.11 mill/uL (4.70-6.10); White Blood Cell (WBC) Count 9.1 thou/uL (4.8-10.8)
[2022-05-03 14:11] LABS: ALT (SGPT) 12 U/L (8-55); AST (SGOT) 24 U/L (5-34); Acetaminophen Less than 10.0 mcg/mL (10.0-30.0); Albumin 3.7 g/dL (3.4-4.8); Alcohol Less than 10 mg/dL (Less than 10); Alkaline Phosphatase 393 U/L (40-110); Anion Gap 19 mmol/L (10-20); BUN (Urea Nitrogen) 18 mg/dL (8.4-25.7); Bilirubin, Total 0.6 mg/dL (0.2-1.2); Calc. Creatinine Clearance 0 mL/min (70-130); Calcium 9.6 mg/dL (7.8-10.44); Carbon Dioxide 25 mmol/L (23-31); Chloride 100 mmol/L (98-107); Estimated GFR 35; Globulin 3.7 g/dL (2.4-3.5); Glucose 124 mg/dL (83-110); Protein, Total 7.4 g/dL (5.8-8.1); Salicylate Less than 8.0 mg/dL (15.0-30.0); Sodium 141 mmol/L (136-145)
[2022-05-03 14:16] LABS: Potassium 2.6 mmol/L (3.5-5.1)
[2022-05-03] MEDS ORDERED: Potassium Chloride 20 MEQ TAB ONE (14:26)
[2022-05-03] MEDS ORDERED: Magnesium 2 GM/50 ML BAG (IN WATER) ONE (14:43)
[2022-05-03] MEDS ORDERED: Aspirin 325 MG TAB ONE (15:00)
[2022-05-03 15:28] LABS: Magnesium 2.1 mg/dL (1.6-2.6)
[2022-05-03] MEDS ORDERED: Acetaminophen 500 MG TAB PO PRN ×2 (17:23→17:37)
[2022-05-03] MEDS ORDERED: hydrALAZINE 20 MG/ML VIAL SLOW IVP PRN (17:24)
[2022-05-03] MEDS ORDERED: HYDROcodone/Acetaminophen 5/325 mg Tablet PO PRN ×2 (17:24→17:37)
[2022-05-03] MEDS ORDERED: Lactated Ringer's 1,000 ML IV SCH (17:30)
[2022-05-03] MEDS ORDERED: Lactated Ringer's 500 ML IV SCH (17:30)
[2022-05-03 18:21] VITALS: BMI 25.8
[2022-05-03 20:33] LABS: Anion Gap 19 mmol/L (10-20); BUN (Urea Nitrogen) 16 mg/dL (8.4-25.7); Calc. Creatinine Clearance 42 mL/min (70-130); Calcium 9.2 mg/dL (7.8-10.44); Carbon Dioxide 24 mmol/L (23-31); Estimated GFR 40; Glucose 99 mg/dL (83-110)
[2022-05-03 20:37] LABS: Chloride 100 mmol/L (98-107); Sodium 140 mmol/L (136-145)
[2022-05-03 20:41] LABS: Potassium 2.8 mmol/L (3.5-5.1)
[2022-05-03] MEDS: Atorvastatin Calcium 40 MG TAB PO SCH (21:13)
[2022-05-03] MEDS ORDERED: Labetalol HCl 100 MG/20 ML VIAL SLOW IVP PRN (21:29)
[2022-05-03] MEDS: Potassium Chloride 20 MEQ in Premix Bag 1 BAG IVPB SCH ×2 (21:47→23:52)
[2022-05-03] MEDS ORDERED: Potassium Chloride 20 MEQ TAB PO SCH (22:00)
[2022-05-04 05:18] LABS: #Basophils 0.1 thou/uL (0.0-0.2); #Eosinphils 0.1 thou/uL (0.0-0.7); #Lymphocytes 2.9 thou/uL (1.20-3.40); #Neutrophils 5.7 thou/uL (1.40-6.50); %Basophils 1.1 % (0.0-1.0); %Eosinophils 1.4 % (0.0-10.0); %Lymphocytes 29.2 % (21.0-51.0); %Monocytes 10.5 % (0.0-10.0); %Neutrophils 57.9 % (42.0-75.0); Hemoglobin 15.6 g/dL (14.0-18.0); Mean Corpuscular HGB CONC 33.1 g/dL (32.0-36.0); Mean Corpuscular Hemoglobin 31.4 pg (27.0-31.0); Mean Platelet Volume 7.8 fL (7.4-10.4); Platelet Count 422 thou/uL (130-400); RBC Distribution Width 13.5 % (11.5-14.5); Red Blood Cell (RBC) Count 4.96 mill/uL (4.70-6.10); White Blood Cell (WBC) Count 9.9 thou/uL (4.8-10.8)
[2022-05-04 05:41] LABS: ALT (SGPT) 15 U/L (8-55); AST (SGOT) 23 U/L (5-34); Albumin 3.5 g/dL (3.4-4.8); Alkaline Phosphatase 365 U/L (40-110); Anion Gap 14 mmol/L (10-20); BUN (Urea Nitrogen) 16 mg/dL (8.4-25.7); Bilirubin, Total 0.6 mg/dL (0.2-1.2); Calc. Creatinine Clearance 43 mL/min (70-130); Calcium 9.4 mg/dL (7.8-10.44); Carbon Dioxide 26 mmol/L (23-31); Chloride 104 mmol/L (98-107); Estimated GFR 41; Globulin 3.4 g/dL (2.4-3.5); Glucose 106 mg/dL (83-110); Potassium 3.3 mmol/L (3.5-5.1); Protein, Total 6.9 g/dL (5.8-8.1); Sodium 141 mmol/L (136-145)
[2022-05-04] MEDS: Enoxaparin Sodium 40 MG/0.4 ML SYRINGE SC SCH ×2 (08:41→09:58)
[2022-05-04] MEDS: PARoxetine 20 MG TAB PO SCH (08:42)
[2022-05-04] MEDS: Aspirin 81 mg Enteric Coated Tablet PO SCH (08:45)
[2022-05-04] MEDS: NIFEdipine XL 90 MG TAB PO SCH (08:45)
[2022-05-04] MEDS ORDERED: NIFEdipine XL 60 MG TAB PO SCH (09:00)
[2022-05-04] MEDS ORDERED: Potassium Chloride 20 MEQ TAB PO SCH (12:30)
[2022-05-04] MEDS ORDERED: HYDROcodone/Acetaminophen 5/325 mg Tablet PO PRN (13:54)
[2022-05-04] MEDS: Dronabinol 2.5 MG CAP PO SCH (17:51)
[2022-05-04] MEDS: Atorvastatin Calcium 40 MG TAB PO SCH (20:53)
[2022-05-04] MEDS: HYDROcodone/Acetaminophen 5/325 mg Tablet PO SCH (20:53)
[2022-05-05 06:47] LABS: #Basophils 0.1 thou/uL (0.0-0.2); #Eosinphils 0.2 thou/uL (0.0-0.7); #Lymphocytes 3.5 thou/uL (1.20-3.40); #Neutrophils 4.8 thou/uL (1.40-6.50); %Basophils 0.7 % (0.0-1.0); %Lymphocytes 36.6 % (21.0-51.0); %Monocytes 10.7 % (0.0-10.0); %Neutrophils 50.1 % (42.0-75.0); Hemoglobin 15.7 g/dL (14.0-18.0); Mean Corpuscular HGB CONC 32.9 g/dL (32.0-36.0); Mean Corpuscular Hemoglobin 31.2 pg (27.0-31.0); Mean Corpuscular Volume 94.9 fL (78.0-98.0); Mean Platelet Volume 7.8 fL (7.4-10.4); Platelet Count 434 thou/uL (130-400); RBC Distribution Width 13.6 % (11.5-14.5); Red Blood Cell (RBC) Count 5.02 mill/uL (4.70-6.10); White Blood Cell (WBC) Count 9.5 thou/uL (4.8-10.8)
[2022-05-05 07:05] LABS: ALT (SGPT) 12 U/L (8-55); AST (SGOT) 21 U/L (5-34); Albumin 3.4 g/dL (3.4-4.8); Alkaline Phosphatase 375 U/L (40-110); Anion Gap 16 mmol/L (10-20); BUN (Urea Nitrogen) 15 mg/dL (8.4-25.7); Bilirubin, Total 0.6 mg/dL (0.2-1.2); Calc. Creatinine Clearance 42 mL/min (70-130); Calcium 9.3 mg/dL (7.8-10.44); Carbon Dioxide 24 mmol/L (23-31); Chloride 106 mmol/L (98-107); Estimated GFR 40; Globulin 3.5 g/dL (2.4-3.5); Glucose 106 mg/dL (83-110); Potassium 3.2 mmol/L (3.5-5.1); Protein, Total 6.9 g/dL (5.8-8.1); Sodium 143 mmol/L (136-145)
[2022-05-05] MEDS: Enoxaparin Sodium 40 MG/0.4 ML SYRINGE SC SCH (09:05)
[2022-05-05] MEDS: Polyethylene Glycol 3350 17 GM Packet PO SCH (09:05)
[2022-05-05] MEDS: HYDROcodone/Acetaminophen 5/325 mg Tablet PO SCH ×2 (09:06→21:14)
[2022-05-05] MEDS: NIFEdipine XL 90 MG TAB PO SCH (09:06)
[2022-05-05] MEDS: PARoxetine 20 MG TAB PO SCH (09:06)
[2022-05-05] MEDS: Aspirin 81 mg Enteric Coated Tablet PO SCH (09:06)
[2022-05-05] MEDS ORDERED: Lisinopril 10 MG TAB PO SCH (11:30)
[2022-05-05] MEDS: Potassium Chloride 20 MEQ TAB PO SCH (17:43)
[2022-05-05] MEDS: Dronabinol 2.5 MG CAP PO SCH (17:43)
[2022-05-05] MEDS: Atorvastatin Calcium 40 MG TAB PO SCH (21:14)
[2022-05-06 06:27] LABS: Anion Gap 14 mmol/L (10-20); BUN (Urea Nitrogen) 22 mg/dL (8.4-25.7); Calc. Creatinine Clearance 37 mL/min (70-130); Calcium 9.5 mg/dL (7.8-10.44); Carbon Dioxide 26 mmol/L (23-31); Chloride 105 mmol/L (98-107); Estimated GFR 34; Glucose 88 mg/dL (83-110); Potassium 3.1 mmol/L (3.5-5.1); Sodium 142 mmol/L (136-145)
[2022-05-06] MEDS: NIFEdipine XL 90 MG TAB PO SCH (08:42)
[2022-05-06] MEDS: PARoxetine 20 MG TAB PO SCH (08:43)
[2022-05-06] MEDS: HYDROcodone/Acetaminophen 5/325 mg Tablet PO SCH (08:43)
[2022-05-06] MEDS: Potassium Chloride 20 MEQ TAB PO SCH ×2 (08:44→17:57)
[2022-05-06] MEDS: Aspirin 81 mg Enteric Coated Tablet PO SCH (08:45)
[2022-05-06] MEDS: Polyethylene Glycol 3350 17 GM Packet PO SCH (08:46)
[2022-05-06] MEDS ORDERED: Lisinopril 10 MG TAB PO SCH (09:00)
[2022-05-06] MEDS ORDERED: Lactated Ringer's 1,000 ML IV SCH (10:45)
[2022-05-06] MEDS ORDERED: Potassium Chloride 20 MEQ TAB PO SCH (10:45)
[2022-05-06] MEDS: Enoxaparin Sodium 40 MG/0.4 ML SYRINGE SC SCH (11:42)
[2022-05-06] MEDS ORDERED: Carvedilol 3.125 MG TAB PO SCH (17:00)
[2022-05-06 20:07] VITALS: BP 150/80; TEMP 97.9
[2022-05-07] MEDS ORDERED: Megestrol Acetate 40 MG TAB PO SCH (09:00)
[2022-05-07] MEDS ORDERED: Megestrol Acetate 800 MG/20 ML UDCUP PO SCH (09:00)
== END 2022-05-06 20:24 | DRG 683 ==
LOC: ERS 12:33 → NEURO 16:51 → OBSVTOIN 05-04 16:24
PROVIDERS: ADMIT Student in an Organized Health Care Education/Training Program; ATTEND Student in an Organized Health Care Education/Training Program
DX: N17.9 Acute kidney failure, unspecified (principal); C41.9 Malignant neoplasm of bone and articular cartilage, unspecified; I69.951 Hemiplegia and hemiparesis following unspecified cerebrovascular disease affecting right dominant side; I16.1 Hypertensive emergency; Z20.822 Contact with and (suspected) exposure to COVID-19; Z66 Do not resuscitate; I10 Essential (primary) hypertension; E78.5 Hyperlipidemia, unspecified; K21.9 Gastro-esophageal reflux disease without esophagitis; F32.A Depression, unspecified; E86.0 Dehydration; E87.6 Hypokalemia; W19.XXXD Unspecified fall, subsequent encounter; Z79.899 Other long term (current) drug therapy; S32.9XXG Fracture of unspecified parts of lumbosacral spine and pelvis, subsequent encounter for fracture with delayed healing; Z74.01 Bed confinement status
CPT/HCPCS: 36415; 70450; 71045; 72170; 80048; 80053; 80307; 83605; 83735; 85025; 93005; 96365; 96372; 96375; 96376; G0378; J1650; J3475; J3480; J7120; Q0167; U0003; U0005

== ENCOUNTER 2022-08-05 10:57 | Emergency (ER) | payer OTHER ==
[2022-08-05] MEDS ORDERED: FENTANYL 50 MCG/ML 1 ML VIAL ONE (11:51)
[2022-08-05 11:54] LABS: #Basophils 0.1 thou/uL (0.0-0.2); #Eosinphils 0.3 thou/uL (0.0-0.7); #Lymphocytes 2.9 thou/uL (1.20-3.40); #Monocytes 0.8 thou/uL (0.11-0.59); #Neutrophils 5.7 thou/uL (1.40-6.50); %Basophils 0.6 % (0.0-1.0); %Lymphocytes 30.2 % (21.0-51.0); %Monocytes 7.7 % (0.0-10.0); %Neutrophils 58.5 % (42.0-75.0); Hemoglobin 14.7 g/dL (14.0-18.0); Mean Corpuscular HGB CONC 32.6 g/dL (32.0-36.0); Mean Corpuscular Hemoglobin 30.7 pg (27.0-31.0); Mean Platelet Volume 7.5 fL (7.4-10.4); Platelet Count 322 10x3/uL (130-400); RBC Distribution Width 12.6 % (11.5-14.5); Red Blood Cell (RBC) Count 4.81 mill/uL (4.70-6.10); White Blood Cell (WBC) Count 9.7 10x3/uL (4.8-10.8)
[2022-08-05 12:16] LABS: ALT (SGPT) 15 U/L (8-55); AST (SGOT) 18 U/L (5-34); Alkaline Phosphatase 149 U/L (40-110); Anion Gap 10 mmol/L (10-20); BUN (Urea Nitrogen) 21 mg/dL (8.4-25.7); Bilirubin, Total 0.6 mg/dL (0.2-1.2); Calc. Creatinine Clearance 0 mL/min (70-130); Calcium 9.5 mg/dL (7.8-10.44); Carbon Dioxide 24 mmol/L (23-31); Chloride 108 mmol/L (98-107); Estimated GFR 60; Globulin 3.5 g/dL (2.4-3.5); Glucose 96 mg/dL (83-110); Potassium 3.3 mmol/L (3.5-5.1); Protein, Total 7.5 g/dL (5.8-8.1); Sodium 139 mmol/L (136-145)
[2022-08-05] MEDS ORDERED: Morphine 4 MG/ML VIAL ONE ×2 (15:16→19:08)
[2022-08-05] MEDS ORDERED: hydrALAZINE 20 MG/ML VIAL ONE (17:36)
== END 2022-08-05 20:22 ==
LOC: ERS 10:57
DX: M54.9 Dorsalgia, unspecified (principal); E78.00 Pure hypercholesterolemia, unspecified; I10 Essential (primary) hypertension; Z79.82 Long term (current) use of aspirin; W19.XXXA Unspecified fall, initial encounter
CPT/HCPCS: 36415; 70450; 72072; 72100; 80053; 83605; 84484; 85025; 96374; 96375; 96376; J0360; J2270; J3010